=== PATIENT | female | born 1945 | race Caucasian/White ===

== ENCOUNTER → 2021-05-28 08:11 | Outpatient (BNVA) | payer MEDICARE, SELFPAY | PROVIDERS: PCP Internal Medicine; Visit Provider Internal Medicine | DX: I10 Essential (primary) hypertension (principal) | CPT/HCPCS: 99212 ==

== ENCOUNTER → 2021-06-11 14:26 | Outpatient (REF) | payer MEDICARE, SELFPAY ==
--- NOTE | 2021-06-11 14:32 | CA_ITS ---
Transthoracic Echocardiogram Patient (Last, First, Middle): Angle Wiseman, Gender: Female Date of : 1945 Age: 75 Procedure Date: 06/11/2021 Procedure Type: Transthoracic Echocardiogram Location: OP Height: 162.56 cm Weight: 69.4 kg BSA: 1.75 m2 Heart Rate: bpm BP: 130 / 90 mmHg Splicer Machine Operator: PRISCA Referring MD: Anil Levine MD Symptoms: I10 - Essential (primary) hypertension Study Quality: Fair ECG Rhythm: Sinus Conclusions: - The left ventricular systolic function is normal. The calculated ejection fraction is 62% by biplane method. - There is an interatrial septal aneurysm seen. - No obvious PFO by color Doppler. - No obvious valvular pathology seen on this study. Findings Left Ventricle Normal left ventricular cavity size. There is normal left ventricular wall thickness. The left ventricular systolic function is normal. The calculated ejection fraction is 62% by biplane method. There is no evidence of regional wall motion abnormalities. Diastolic function is normal for age. Right Ventricle Normal right ventricular cavity size and systolic function. Atria Both atria are normal in size. There is an interatrial septal aneurysm seen. No obvious PFO by color Doppler. Aortic Valve There is a normal trileaflet aortic valve. There is no aortic valve stenosis. There is no aortic valve regurgitation. Mitral Valve The mitral valve appears normal. There is trace mitral valve regurgitation. There is no mitral valve stenosis. Pulmonic Valve The pulmonic valve was not well visualized. Tricuspid Valve There is trace tricuspid valve regurgitation. The pulmonary artery systolic pressure is normal. Great Vessels The asc aorta and aortic arch are normal in size. Venous The inferior vena cava was not well visualized. Pericardium/Pleural There is no evidence of pericardial effusion. Prior Study Comparison No significant change compared to prior study dated: 01/28/2020. Recommendations, Care & Conclusions No obvious valvular pathology seen on this study. Measurements 2D Linear Measurements IVSd: 0.95 0.6-0.9/0.6-1.0 cm LVIDd: 2.83 3.9-5.3/4.2-5.9 cm LVIDd Index: 1.62 2.4-3.2/2.2-3.1 cm/m2 LVIDs: 1.95 2.0-3.6 cm LVPWd: 0.89 0.7-1.1 cm Ao Root: 3.60 2.1-3.5 cm LA Diam: 3.30 2.7-3.8/3.0-4.0 cm LAIDs Index: 1.89 1.5-2.3 cm/m2 LV Mass: 82.01 67-162/88-224 g LV Mass Index: 46.86 43-95/49-115 g/m2 LVOT Diam: 2.10 3.0+(-)1.3 cm 2D Systolic Function EF 4C: 61.30 >55% EF 2C: 63.70 >55% EF BiP: 62.30 >55% Mitral Valve MV Pk E: 0.54 MV PK A: 0.72 MV Decel Time: 166.00 E/A: 0.70 E'Lateral: 7.51 E'Medial: 6.20 E/E' Med: 8.60 E/E' Lat: 7.10 PHT: 49.00 MVA PHT: 4.49 Decel Towner: 3.22 Aortic Valve AoV Pk Antony: 1.28 AoV Mn Antony: 0.87 AoV VTI: 0.26 AoV Pk Grad: 7.00 Aov Mn Grad: 3.00 AUNDREA Cont.VTI: 3.29 LVOT LVOT Pk Antony: 1.27 LVOT Mn Antony: 0.82 LVOT VTI: 0.25 LVOT Pk Grad: 6.00 LVOT Mn Grad: 3.00 LVOT Diam: 2.10 LVOT Area: 3.46 Diastolic Function MV Pk E: 0.54 MV Pk A: 0.72 E/A: 0.70 E'Medial: 6.20 E/E' Med: 8.60 E' Laterial: 7.51 E/E' Lat: 7.10 Right Ventricle TAPSE (mm): 2.04 TVS' Antony: 13.10 Tricuspid Valve TR Pk Antony: 1.95 TR Pk Grad: 15.00 RA Press: 3.00 RVSP: 18.00 Great Vessels Aorta Ao Root-2D: 3.60 2.0-3.7 cm Ao Asc: 3.60 2.1-3.4 cm Ao Arch: 3.30 Updated in Other Vendor System with Status of Final Anil Levine MD electronically signed on 06/11/2021 4:36:55 PM with status of Final
== END ==
LOC: HO.CARD 14:26
PROVIDERS: Visit Provider Internal Medicine
DX: I10 Essential (primary) hypertension (principal)
CPT/HCPCS: 93306

== ENCOUNTER 2021-08-13 11:54 | Outpatient (REF) | payer MEDICARE, SELFPAY ==
--- NOTE | ~2021-08-13 | MM_ITS ---
EXAMINATION: MM SCREENING DIGITAL BREAST TOMOSYNTHESIS, BILATERAL CLINICAL INFORMATION: Screening. Asymptomatic. The lifetime risk of breast cancer based on the Tyrer-Cuzick Model is 2%. COMPARISON: Mammography: 03/28/2017, 03/08/2016 TECHNIQUE: Digital breast tomosynthesis is performed in both the craniocaudal and mediolateral oblique views along with computer-aided detection (CAD). Synthesized 2D images are generated from the tomosynthesis. FINDINGS: There are scattered areas of fibroglandular density (ACR BI-RADS breast composition Category b). There are no significant masses, abnormal calcifications, or other abnormalities. MM/MM tomosynthesis screening BI IMPRESSION: No mammographic evidence of malignancy. ASSESSMENT: BI-RADS 1: Negative RECOMMENDATION: Routine annual mammography screening. This patient's information was entered into a reminder system with a target due date for their next mammogram.
== END 2021-08-13 11:55 | disposition home or self-care (01) ==
LOC: HO.MAMMO 11:54
PROVIDERS: Visit Provider Physician Assistant Medical
DX: Z12.31 Encounter for screening mammogram for malignant neoplasm of breast (principal)
CPT/HCPCS: 77063; 77067

== ENCOUNTER → 2021-08-15 08:50 | Outpatient (BNVA) | payer MEDICARE, SELFPAY | PROVIDERS: PCP Internal Medicine; Referring Provider Internal Medicine; Visit Provider Internal Medicine | DX: I10 Essential (primary) hypertension (principal); I25.3 Aneurysm of heart | CPT/HCPCS: 99212 ==

== ENCOUNTER → 2022-02-06 09:21 | Outpatient (BNVA) | payer MEDICARE, SELFPAY | PROVIDERS: PCP Physician Assistant Medical; Visit Provider Internal Medicine | DX: I25.3 Aneurysm of heart (principal); I10 Essential (primary) hypertension | CPT/HCPCS: 93005; 99212 ==

== ENCOUNTER 2022-09-04 13:10 | Outpatient (REF) | payer MEDICARE, SELFPAY ==
--- NOTE | ~2022-09-04 | MM_ITS ---
EXAMINATION: MM SCREENING DIGITAL BREAST TOMOSYNTHESIS, BILATERAL CLINICAL INFORMATION: Screening. Asymptomatic. The lifetime risk of breast cancer based on the Tyrer-Cuzick Model is 2%. COMPARISON: Mammography: 08/13/2021, 03/28/2017, 03/08/2016 TECHNIQUE: Digital breast tomosynthesis is performed in both the craniocaudal and mediolateral oblique views along with computer-aided detection (CAD). Synthesized 2D images are generated from the tomosynthesis. FINDINGS: There are scattered areas of fibroglandular density (ACR BI-RADS breast composition Category b). There are no significant masses, abnormal calcifications, or other abnormalities. Parenchymal pattern is similar to prior studies. The axilla and skin contours are unremarkable. MM/MM tomosynthesis screening BI IMPRESSION: No mammographic evidence of malignancy. ASSESSMENT: BI-RADS 1: Negative RECOMMENDATION: Routine annual mammography screening. This patient's information was entered into a reminder system with a target due date for their next mammogram.
== END 2022-09-04 13:11 | disposition home or self-care (01) ==
LOC: HO.MAMMO 13:10
PROVIDERS: PCP Internal Medicine; Visit Provider Internal Medicine
DX: Z12.31 Encounter for screening mammogram for malignant neoplasm of breast (principal)
CPT/HCPCS: 77063; 77067

== ENCOUNTER → 2023-02-10 10:07 | Outpatient (BNVA) | payer MEDICARE, SELFPAY | PROVIDERS: PCP Internal Medicine; Referring Provider Internal Medicine; Visit Provider Internal Medicine | DX: I25.3 Aneurysm of heart (principal); I10 Essential (primary) hypertension | CPT/HCPCS: 93005; 99212 ==

== ENCOUNTER 2023-10-10 12:41 | Outpatient (REF) | payer MEDICARE, SELFPAY | END 2023-10-10 12:42 | disposition home or self-care (01) | LOC: HO.MAMMO 12:41 | PROVIDERS: PCP Internal Medicine; Visit Provider Internal Medicine | DX: Z12.31 Encounter for screening mammogram for malignant neoplasm of breast (principal) | CPT/HCPCS: 77063; 77067 ==

== ENCOUNTER → 2023-10-10 13:15 | Outpatient (BNV) | payer MEDICARE, SELFPAY | PROVIDERS: PCP Internal Medicine; Visit Provider Radiology Diagnostic Radiology | DX: Z12.31 Encounter for screening mammogram for malignant neoplasm of breast (principal) | CPT/HCPCS: 77063; 77067 ==

== ENCOUNTER 2023-11-18 10:33 | Outpatient (AMB) | payer MEDICARE, SELFPAY ==
--- NOTE | 2023-11-18 10:42 | A.OFFVIS_ITS ---
Intake Intake Visit Reasons: bladder wall thickening Intake Note: New Patient presents for initial visit for bladder wall thickening Urology Medications: Vitamin B6 Blood Thinner: none Allergies to antibiotics: Azithromycin, amoxicillin Career Services Assistant Required: No Accompanied by: Self / Same As Patient Allergies oxycodone [From Percocet] Allergy (Mild, Verified 11/18/23 22:01) SWELLING,RASH allopurinol Allergy (Unknown, Verified 11/18/23 22:01) unknown amoxicillin Allergy (Unknown, Verified 11/18/23 22:01) unknown azithromycin [From ZITHROMAX] Allergy (Unknown, Verified 11/18/23 22:01) THROAT SWELLING codeine Allergy (Unknown, Verified 11/18/23 22:01) hives labetalol [LABETALOL] Allergy (Unknown, Verified 11/18/23 22:) RASH lisinopril Allergy (Unknown, Verified 11/18/23 22:01) swelling lumps rash aspirin [Aspirin] Adverse Reaction (Mild, Verified 11/18/23 22:01) GI UPSET, upset stomach ibuprofen [IBUPROFEN] Adverse Reaction (Unknown, Verified 11/18/23 22:01) STOMACH UPSET pantoprazole Adverse Reaction (Unknown, Verified 11/18/23 22:01) diarrhea, abd pain, muscle spasms Medication List - Last Reconciled 11/18/23 by JULIANN Webber- carvedilol 25 mg PO BEDTIME cholecalciferol (vitamin D3) (Vitamin D3) 50 mcg PO DAILY clobetasol 0.05% 1 appl topical BID eplerenone 100 mg PO DAILY nitroglycerin 0.4 mg sublingual Q5M omeprazole 20 mg PO DAILY PRN pyridoxine (vitamin B6) 10 mg PO DAILY HPI HPI Comments History of Present Illness Details Angle Alvarenga is a very pleasant 78-year-old female patient of Dr. Yip. She has a past medical history of anxiety and hypertension. She presents to the office today as a new patient for bladder wall thickening. In discussion with the patient today she reports having experienced left-sided upper abdominal pain at which time a CT of the abdomen was ordered and performed and patient patient was noted to have bladder wall thickening. In discussion with the patient today she reports left upper abdominal pain has since subsided. In review of patient's chart it appears CT of the abdomen and pelvis did not show any really no calculi however incidental finding of bladder wall thickening. Discussed at length potential causes of bladder wall thickening with the patient today. When asked she does report new onset of nocturia over the last 3 days. In office urinalysis results reviewed with the patient today positive leukocytes positive nitrates. Discussed potential for possible urinary tract infection. When asked she denies urinary urgency, urinary frequency, incontinence, hematuria, dysuria, foul smelling urine, changes to urinary stream, flank pain, fever, and or chills. When asked she denies any previous history of recurrent urinary tract infections. She otherwise denies any other issues or concerns at this time. [facility] Medical History Anxiety, generalized Hypertension, essential Surgical History History of tonsillectomy History of carpal tunnel surgery History of laminectomy H/O total hysterectomy with bilateral salpingo-oophorectomy (BSO) Family History Father Lung cancer Mother No problems noted. Brother No problems noted. Brother No problems noted. Son No problems noted. Son No problems noted. Sister No problems noted. Sister No problems noted. Daughter No problems noted. Daughter No problems noted. Social History Patient Tobacco Use Status: Never used Tobacco Review of Systems Const Reports as per HPI Eyes Reports no additional complaints ENT Reports no additional complaints Card Reports as per HPI Resp Reports no additional complaints GI Reports no additional complaints Reports as per HPI Musc Reports no additional complaints Neuro Reports no additional complaints Psych Reports as per HPI Endo Reports no additional complaints Alberto/Lymph Reports no additional complaints Aller/Immun Reports no additional complaints Physical Exam Const General: cooperative, healthy appearing, comfortable, no acute distress, well developed, alert and awake Orientation/consciousness: patient oriented x3 Limitations: no limitations HEENT Head: Yes normal to inspection, Yes normocephalic and Yes atraumatic Ears: hearing grossly normal bilaterally Eyes General: appearance normal, both eyes and all related structures Neck Neck: Yes normal visual inspection and Yes trachea midline Chest Chest palpation & inspection: normal inspection of the chest Resp Effort & Inspection: normal respiratory effort and able to speak in complete sentences Cardio Rate: regular rate GI Inspection: Yes normal to inspection General: Yes no CVA tenderness Back/Spine/Pelvis Back: no CVA tenderness Skin General skin exam: no rashes or lesions noted Neuro General: patient oriented x3 Extrem General: Yes normal to inspection Psych Appearance: grossly normal and well kempt Mental Status: mental status grossly normal Speech and movement: Normal speech and movement present and Clear speech present Affect: normal affect Attitude: cooperative Thought process: Normal thought process present Thought content: Normal thought content present Insight: Fair insight present (Psych) Judgement: Fair judgement present (Psych) Results AMB Urinalysis, Automated UA Leukoctes 125 Greg/uL Last Edit by Marion Melvin CMA on 11/18/23 11:00 UA Nitrite Positive Last Edit by Marion Melvin CMA on 11/18/23 11: 00 UA Urobilinogen 0.2 mg/dL Last Edit by Marion Melvin CMA on 4 11:00 UA Protein 30 mg/dL Last Edit by Marion Melvin CMA on 11/18/23 11:0 0 UA pH 6.0 Last Edit by Marion Melvin CMA on 11/18/23 11:00 UA Blood 0 Woody/uL Last Edit by Marion Melvin CMA on 11/18/23 11:00 UA Specific [place] 1.030 Last Edit by Marion Melvin CMA on 11:00 UA Ketone Negative Last Edit by Marion Melvin CMA on 11/18/23 11:0 0 UA Bilirubin 0 mg/dL Last Edit by Marion Melvin CMA on 11/18/23 11: 00 UA Glucose 0 mg/dL Last Edit by Marion Melvin CMA on 11/18/23 11:00 Results Reviewed Results Reviewed: Laboratory Last Values Urine pH (Auto) 6.0 11/18/23 10:57 Specific [place] (Auto) 1.030 11/18/23 10:57 Urine Protein (Auto) 30 mg/dL 11/18/23 10:57 Glucose (UA)(Auto) 0 mg/dL 11/18/23 10:57 Urine Ketones (Auto) Negative 11/18/23 10:57 Urine Blood (Auto) 0 Woody/uL 11/18/23 10:57 Urine Nitrite (Auto) Positive 11/18/23 10:57 Urine Bilirubin (Auto) 0 mg/dL 11/18/23 10:57 Urine Urobilinogen (Auto) 0.2 mg/dL 11/18/23 10:57 Leukocyte Esterase (Auto) 125 Greg/uL 11/18/23 10:57 Assessment & Plan Assessment & Plan (1) Nocturia: Code(s): R35.1 - Nocturia (2) Urinary tract infection: Code(s): N39.0 - Urinary tract infection, site not specified (3) Bladder wall thickening: Code(s): N32.89 - Other specified disorders of bladder Plan In office urinalysis results reviewed with the patient today; as noted above; will send for urine culture. Start Macrobid as discussed and prescribed. Discussed at length potential causes of bladder wall thickening. Discussed, educated, and stressed the importance of continuing to drink plenty of water daily. Discussed potential for near future in office cystoscopy for further assessment evaluation. Follow-up in 1 month with PVR; or sooner with any issues, concerns, and or questions. Orders: Orders AMB Urinalysis Automated Today R33.9 - Retention of urine, unspecified Urine Culture Today N39.0 - Urinary tract infection, site not specified Medications: New nitrofurantoin macrocrystal must administer with a meal/food 100 mg PO BID 20 caps 0RF 10 days N39.0 - Urinary tract infection, site not specified Patient Instructions: The patient had an opportunity to ask questions regarding the treatment plan. All questions were answered. Physical exam, labs, and imaging were discussed and reviewed in detail. As well as risks, benefits, and discussion of treatment choices. No major barriers to understanding were identified. The patient expressed understanding and agreement with the above treatment plan. The patient was made aware they should contact our office by phone for worsening of their current condition, the appearance of new symptoms, or with any questions or concerns. Compliance is encouraged with any medications and follow up testing that is ordered. It is a privilege to be allowed the opportunity to participate in? your urological care.? Again, if you have any questions or concerns If you have any questions or concerns please do not hesitate to contact me. The office is [phone]. This note is constructed using voice recognition software. While every effort has been made to ensure accuracy sales representative sales manager errors may have been included. Yours sincerely, JULIANN Webber-KING Coding Level of Care Code New Pt Level 4 (83282) Diagnoses Nocturia R35.1 Urinary tract infection N39.0 Bladder wall thickening N32.89
== END 2023-11-18 11:16 | disposition home or self-care (01) ==
PROVIDERS: PCP Internal Medicine; Visit Provider Nurse Practitioner Family
DX: R35.1 Nocturia (principal); N39.0 Urinary tract infection, site not specified; N32.89 Other specified disorders of bladder
CPT/HCPCS: 99204

== ENCOUNTER 2023-11-18 10:33 | Outpatient (REF) | payer MEDICARE, SELFPAY | END 2023-11-18 10:34 | disposition home or self-care (01) | LOC: HO.LAB 10:33 | PROVIDERS: PCP Internal Medicine; Visit Provider Nurse Practitioner Family | DX: R35.1 Nocturia (principal); N39.0 Urinary tract infection, site not specified; N32.89 Other specified disorders of bladder | CPT/HCPCS: 81003; 87086; 87088; 87186; 99202 ==

== ENCOUNTER 2023-12-23 11:46 | Outpatient (AMB) | payer MEDICARE, SELFPAY ==
--- NOTE | 2023-12-23 12:07 | MHC.OFFVIS ---
Intake Intake Visit Reasons: 1m/PVR Intake Note: Patient presents today for a follow up on PVR Meds- None Allergies to Antibiotic- No Known Allergies Post Void Residual: 0ml Tapper Balance Wheel Screw Hole Required: No Accompanied by: Self / Same As Patient Allergies oxycodone [From Percocet] Allergy (Mild, Verified 12/23/23 13:05) SWELLING,RASH allopurinol Allergy (Unknown, Verified 12/23/23 13:05) unknown amoxicillin Allergy (Unknown, Verified 12/23/23 13:05) unknown azithromycin [From ZITHROMAX] Allergy (Unknown, Verified 12/23/23 13:05) THROAT SWELLING codeine Allergy (Unknown, Verified 12/23/23 13:05) hives labetalol [LABETALOL] Allergy (Unknown, Verified 12/23/23 13:05) RASH lisinopril Allergy (Unknown, Verified 12/23/23 13:05) swelling lumps rash aspirin [Aspirin] Adverse Reaction (Mild, Verified 12/23/23 13:05) GI UPSET, upset stomach ibuprofen [IBUPROFEN] Adverse Reaction (Unknown, Verified 12/23/23 13:05) STOMACH UPSET pantoprazole Adverse Reaction (Unknown, Verified 12/23/23 13:05) diarrhea, abd pain, muscle spasms Medication List - Last Reconciled 12/23/23 by JULIANN Webber- carvedilol 25 mg PO BEDTIME cholecalciferol (vitamin D3) (Vitamin D3) 50 mcg PO DAILY clobetasol 0.05% 1 appl topical BID eplerenone 100 mg PO DAILY nitroglycerin 0.4 mg sublingual Q5M omeprazole 20 mg PO DAILY PRN pyridoxine (vitamin B6) 10 mg PO DAILY HPI HPI Comments History of Present Illness Details Angle Alvarenga is a very pleasant 78-year-old female patient of Dr. Yip. She has a past medical history of anxiety and hypertension. She presents to the office today for follow-up. Of note, patient was seen approximately 1 month ago as a new patient for bladder wall thickening at which time in office urinalysis noted positive leukocytes and nitrates. At that time her urine was sent for urine culture. She has since been treated with nitrofurantoin for positive E coli urine culture. In discussion with the patient today she reports having completed antibiotic therapy as prescribed. She discusses at length her ongoing gastroenterological issues. She reports feeling early satiety and constant fullness in her stomach. She also reports nocturia however states it is intermittent and not often enough to be bothersome. She otherwise denies urinary urgency, urinary frequency, incontinence, hematuria, dysuria, foul smelling urine, changes to urinary stream, flank pain, fever, and or chills. In office urinalysis results reviewed with the patient today. PVR 0 mL. Patient with a longstanding history of nephrolithiasis requiring surgical intervention with Dr. Santana discussed obtaining retroperitoneal ultrasound for surveillance monitoring given history of nephrolithiasis and nocturia. Discussed referral to GI. [facility] Medical History Anxiety, generalized Hypertension, essential Surgical History History of tonsillectomy History of carpal tunnel surgery History of laminectomy H/O total hysterectomy with bilateral salpingo-oophorectomy (BSO) Family History Father Lung cancer Mother No problems noted. Brother No problems noted. Brother No problems noted. Son No problems noted. Son No problems noted. Sister No problems noted. Sister No problems noted. Daughter No problems noted. Daughter No problems noted. Social History Patient Tobacco Use Status: Never used Tobacco Review of Systems Const Reports as per HPI Eyes Reports no additional complaints ENT Reports no additional complaints Card Reports as per HPI Resp Reports no additional complaints GI Reports no additional complaints Reports as per HPI Musc Reports no additional complaints Neuro Reports no additional complaints Psych Reports as per HPI Endo Reports no additional complaints Alberto/Lymph Reports no additional complaints Aller/Immun Reports no additional complaints Physical Exam Const General: cooperative, healthy appearing, comfortable, no acute distress, well developed, alert and awake Orientation/consciousness: patient oriented x3 Limitations: no limitations HEENT Head: Yes normal to inspection, Yes normocephalic and Yes atraumatic Ears: hearing grossly normal bilaterally Eyes General: appearance normal, both eyes and all related structures Neck Neck: Yes normal visual inspection and Yes trachea midline Chest Chest palpation & inspection: normal inspection of the chest Resp Effort & Inspection: normal respiratory effort and able to speak in complete sentences Cardio Rate: regular rate GI Inspection: Yes normal to inspection General: Yes no CVA tenderness Back/Spine/Pelvis Back: no CVA tenderness Skin General skin exam: no rashes or lesions noted Neuro General: patient oriented x3 Extrem General: Yes normal to inspection Psych Appearance: grossly normal and well kempt Mental Status: mental status grossly normal Speech and movement: Normal speech and movement present and Clear speech present Affect: normal affect Attitude: cooperative Thought process: Normal thought process present Thought content: Normal thought content present Insight: Fair insight present (Psych) Judgement: Fair judgement present (Psych) Office Procedures Post Void Residual Post Residual Void Post Void Residual (PVR): 0 [id number]-[id number] Void Residual by ultrasound Results AMB Urinalysis, Automated UA Leukoctes 70 Greg/uL Last Edit by Marion Melvin CMA on 12/23/23 12:21 UA Nitrite Negative Last Edit by Marion Melvin CMA on 12/23/23 12:21 UA Urobilinogen 0.2 mg/dL Last Edit by Marion Melvin CMA on 12/23/23 12:21 UA Protein 15 mg/dL Last Edit by Marion Melvin CMA on 12/23/23 12:21 UA pH 6.0 Last Edit by Marion Melvin CMA on 12/23/23 12:21 UA Blood 0 Woody/uL Last Edit by Marion Melvin CMA on 12/23/23 12:21 UA Specific [place] 1.015 Last Edit by Marion Melvin CMA on 12/23/23 12:21 UA Ketone Negative Last Edit by Marion Melvin CMA on 12/23/23 12:21 UA Bilirubin 1 mg/dL Last Edit by Marion Melvin CMA on 12/23/23 12:21 UA Glucose 0 mg/dL Last Edit by Marion Melvin CMA on 12/23/23 12:21 Results Reviewed Results Reviewed: Laboratory Last Values Urine pH (Auto) 6.0 12/23/23 12:11 Specific [place] (Auto) 1.015 12/23/23 12:11 Urine Protein (Auto) 15 mg/dL 12/23/23 12:11 Glucose (UA)(Auto) 0 mg/dL 12/23/23 12:11 Urine Ketones (Auto) Negative 12/23/23 12:11 Urine Blood (Auto) 0 Woody/uL 12/23/23 12:11 Urine Nitrite (Auto) Negative 12/23/23 12:11 Urine Bilirubin (Auto) 1 mg/dL 12/23/23 12:11 Urine Urobilinogen (Auto) 0.2 mg/dL 12/23/23 12:11 Leukocyte Esterase (Auto) 70 Greg/uL 12/23/23 12:11 Assessment & Plan Assessment & Plan (1) Bladder wall thickening: Code(s): N32.89 - Other specified disorders of bladder (2) Nocturia: Code(s): R35.1 - Nocturia Plan In office urinalysis results reviewed with the patient today; as noted above. PVR 0 mL. Patient reports nocturia however discusses it is intermittent and not bothersome at this time. Discussed obtaining retroperitoneal ultrasound for further assessment evaluation of longstanding history of nephrolithiasis as well as nocturia She otherwise denies any bothersome urinary issues or concerns. She reports be happy with current voiding parameters. Will refer to gastroenterology. Discussed UTI prevention with D mannose supplement, vitamin-C, increasing fluid intake, behavioral therapy with timed voiding, perineal hygiene and postcoital voiding, and management of constipation with stool softeners and increased fiber intake. Follow-up in 3 months with imaging to be completed prior and PVR at next office visit; or sooner with any issues, concerns, and or questions. Orders: Orders US renal BI 3 Months N20.0 - Calculus of kidney AMB Urinalysis Automated Today R33.9 - Retention of urine, unspecified AMB Post Void Residual by ultrasound Today R33.9 - Retention of urine, unspecified Referrals Gastroenterology Referral R68.81 - Early satiety Patient Instructions: The patient had an opportunity to ask questions regarding the treatment plan. All questions were answered. Physical exam, labs, and imaging were discussed and reviewed in detail. As well as risks, benefits, and discussion of treatment choices. No major barriers to understanding were identified. The patient expressed understanding and agreement with the above treatment plan. The patient was made aware they should contact our office by phone for worsening of their current condition, the appearance of new symptoms, or with any questions or concerns. Compliance is encouraged with any medications and follow up testing that is ordered. It is a privilege to be allowed the opportunity to participate in? your urological care.? Again, if you have any questions or concerns If you have any questions or concerns please do not hesitate to contact me. The office is [phone]. This note is constructed using voice recognition software. While every effort has been made to ensure accuracy science analyst errors may have been included. Yours sincerely, JULIANN Webber-KING Coding Level of Care Code Est Pt Level 4 (37596) Diagnoses Bladder wall thickening N32.89 Nocturia R35.1 CPT Codes Post Residual Void - PVR CPT Code: 89930-[id number] Void Residual by ultrasound ([id number]) Time Spent (min) 35
== END 2023-12-23 12:46 | disposition home or self-care (01) ==
PROVIDERS: PCP Internal Medicine; Visit Provider Nurse Practitioner Family
DX: N32.89 Other specified disorders of bladder (principal); R35.1 Nocturia; R33.9 Retention of urine, unspecified
CPT/HCPCS: 99214

== ENCOUNTER → 2023-12-23 11:46 | Outpatient (BNVA) | payer MEDICARE, SELFPAY | PROVIDERS: PCP Internal Medicine; Visit Provider Nurse Practitioner Family | DX: N32.89 Other specified disorders of bladder (principal); R35.1 Nocturia; N20.0 Calculus of kidney; R33.9 Retention of urine, unspecified | CPT/HCPCS: 51798; 81003; 99212 ==

== ENCOUNTER 2024-04-21 12:30 | Outpatient (AMB) | payer MEDICARE, SELFPAY ==
--- NOTE | 2024-04-21 12:51 | MHC.OFFVIS ---
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 Accompanied by: Self / Same As Patient Allergies oxycodone [From Percocet] Allergy (Mild, Verified 12/23/23 13:05) SWELLING,RASH allopurinol Allergy (Unknown, Verified 12/23/23 13:05) unknown amoxicillin Allergy (Unknown, Verified 12/23/23 13:05) unknown azithromycin [From ZITHROMAX] Allergy (Unknown, Verified 12/23/23 13:05) THROAT SWELLING codeine Allergy (Unknown, Verified 12/23/23 13:05) hives labetalol [LABETALOL] Allergy (Unknown, Verified 12/23/23 13:05) RASH lisinopril Allergy (Unknown, Verified 12/23/23 13:05) swelling lumps rash aspirin [Aspirin] Adverse Reaction (Mild, Verified 12/23/23 13:05) GI UPSET, upset stomach ibuprofen [IBUPROFEN] Adverse Reaction (Unknown, Verified 12/23/23 13:05) STOMACH UPSET pantoprazole Adverse Reaction (Unknown, Verified 12/23/23 13:05) diarrhea, abd pain, muscle spasms Medication List - Last Reconciled 04/21/24 by Anil Levine MD carvedilol 25 mg PO BID cholecalciferol (vitamin D3) (Vitamin D3) 50 mcg PO DAILY clobetasol 0.05% 1 appl topical BID clonidine HCl 0.1 mg PO BID 90 days eplerenone 100 mg PO BID nitroglycerin 0.4 mg sublingual Q5M omeprazole 20 mg PO DAILY PRN pyridoxine (vitamin B6) 10 mg PO DAILY HPI Comments Details: Angle returns for follow-up. She has difficult to control hypertension which is very labile. She has tried various medications including hydralazine, nicardipine, losartan, hydrochlorothiazide but had numerous side effects. With spironolactone, she got very hypotensive/tachycardic. With high blood pressures, she can get symptoms like chest pain and shortness of breath. She has also tried olmesartan but due to low blood pressure, that was also stopped. She is currently on carvedilol and eplerenone. She was on clonidine but it seems she has been off that for the last couple months. It seems that her blood pressure is more erratic now than before according to her. Unclear if it is related to stopping the clonidine. She again gets various constitutional symptoms as well as headaches extra when the blood pressures go up and down. [facility] Medical History Anxiety, generalized Hypertension, essential Surgical History History of tonsillectomy History of carpal tunnel surgery History of laminectomy H/O total hysterectomy with bilateral salpingo-oophorectomy (BSO) Family History Father Lung cancer Mother No problems noted. Brother No problems noted. Brother No problems noted. Son No problems noted. Son No problems noted. Sister No problems noted. Sister No problems noted. Daughter No problems noted. Daughter No problems noted. Social History Alcohol intake: never Patient Tobacco Use Status: Never used Tobacco Review of Systems Const Denies chills, Denies fatigue, Denies fever(s), Reports weakness, Denies weight gain and Denies weight loss ENT Denies dizziness Card Denies chest pain, Denies leg edema, Denies lightheadedness, Denies palpitations, Denies dyspnea on exertion, Denies orthopnea and Denies other Resp Denies cough and Denies dyspnea on exertion GI Denies hematochezia and Denies change in stool character Musc Denies abnormal gait, Denies muscle weakness, Denies numbness, Denies radiating pain into limb and Denies tingling Neuro Denies abnormal gait, Denies dizziness, Denies numbness, Denies tingling and Reports weakness Endo Denies fatigue and Denies palpitations Physical Exam Vital Signs: Last Vital Signs Pulse 83 04/21/24 12:53 BP 160/80 H 04/21/24 12:53 BMI result Body Mass Index 29.9 Const General: comfortable and no acute distress Orientation/consciousness: patient oriented x3 HEENT Other: Unremarkable Head: Yes normal to inspection Neck Neck: Yes normal visual inspection Chest Chest palpation & inspection: normal inspection of the chest Resp Auscultation: clear to auscultation bilaterally Cardio Palpation: normal PMI Heart sounds: S1 normal heart sound present, S2 normal heart sound present, no gallops, no murmurs and no rubs GI Palpation (GI): Soft to palpation Back/Spine/Pelvis Other: unremarkable Skin General skin exam: no rashes or lesions noted Neuro General: patient oriented x3 Extrem General: Yes normal to inspection Psych Mental Status: mental status grossly normal Office Procedures EKG Details: EKG with sinus rhythm at 83/Min; no significant ST-T changes and otherwise unremarkable[place] [id number], Complete Assessment & Plan Assessment & Plan (1) Hypertension, essential: Code(s): I10 - Essential (primary) hypertension Category: Medical Plan: Currently, on carvedilol/eplerenone. Unclear if the high blood pressure is because of stopping the clonidine. We can resume that. Not the 1st line choice but she has unfortunately tried so many medications with various issues. Various other medications have been tried in the past including nicardipine, hydralazine, spironolactone, losartan, olmesartan, hydrochlorothiazide with some issue or the other. Otherwise, last echocardiogram with preserved LVEF. Myocardial perfusion imaging study from 2019 showed normal perfusion. Sleep study was requested in the past but denied by insurance. (2) Atrial septal aneurysm: Code(s): I25.3 - Aneurysm of heart Category: Medical Plan: Seen in echocardiogram, no clear evidence of PFO by color Doppler. No specific implications at this time. Plan Advised her to contact us back in a few days with blood pressure readings. Total time spent including review of data, counseling, documentation, coordination of care-31 minutes. Medications: New clonidine HCl 0.1 mg PO BID 180 tabs 3RF 90 days Coding Level of Care Code Est Pt Level 4 (21797) Diagnoses Hypertension, essential I10 Atrial septal aneurysm I25.3 CPT Codes EKG - CPT: 97230-[id number], Complete ([id number])
[2024-04-21 12:53] VITALS: BP 160/80; PULSE 83; BMI 29.9
== END 2024-04-21 13:16 | disposition home or self-care (01) ==
PROVIDERS: Visit Provider Internal Medicine
DX: I10 Essential (primary) hypertension (principal); I25.3 Aneurysm of heart
CPT/HCPCS: 93010; 99214

== ENCOUNTER → 2024-04-21 12:30 | Outpatient (BNVA) | payer MEDICARE, SELFPAY | PROVIDERS: Visit Provider Internal Medicine | DX: I10 Essential (primary) hypertension (principal); I25.3 Aneurysm of heart | CPT/HCPCS: 93005; 99212 ==

== ENCOUNTER 2024-05-28 13:47 | Outpatient (AMB) | payer MEDICARE, SELFPAY ==
--- NOTE | 2024-05-28 13:57 | MHC.OFFVIS ---
Vital Signs 05/28/24 14:11 Height 5 ft 3 in Weight 163 lb 2.273 oz BMI 28.9 BP 121/74 Blood Pressure Location Lt brachial Position Sitting Pulse 74 Intake Visit Reasons: Early Satiety Intake Note: Angle presents in the office as a new patient for early satiety. CC: She states that she is always bloated in her stomach. She states that after she eats she gets an uncomfortable feeling and she states that she has inflammation in her esophagus. She states omeprazole is helping but it is not helping a lot. She is having dizziness and not sure what medication is causing it. She states her BP goes low and spikes to 200 and she is unsure what she should do. 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 Allergies oxycodone [From Percocet] Allergy (Mild, Verified 05/28/24 14:13) SWELLING,RASH allopurinol Allergy (Unknown, Verified 05/28/24 14:13) unknown amoxicillin Allergy (Unknown, Verified 05/28/24 14:13) unknown azithromycin [From ZITHROMAX] Allergy (Unknown, Verified 05/28/24 14:13) THROAT SWELLING codeine Allergy (Unknown, Verified 05/28/24 14:13) hives labetalol [LABETALOL] Allergy (Unknown, Verified 05/28/24 14:13) RASH lisinopril Allergy (Unknown, Verified 05/28/24 14:13) swelling lumps rash aspirin [Aspirin] Adverse Reaction (Mild, Verified 05/28/24 14:13) GI UPSET, upset stomach ibuprofen [IBUPROFEN] Adverse Reaction (Unknown, Verified 05/28/24 14:13) STOMACH UPSET pantoprazole Adverse Reaction (Unknown, Verified 05/28/24 14:13) diarrhea, abd pain, muscle spasms HPI Comments Details: 78 y.o F who is here for GI issues as below. Reports abd bloating that starts within a few mins of eating. DOesnt matter what she has had for intake. Has not been able to finish her food x 3 months. Has lost a few pounds in the past couple of months. Was seen at [facility] for EGD 02/02/24: Grade B esophagitis. Hiatal hernia. Esophageal biopsies reviewed. Gastric and duodenal biopsies not taken. Assoc with nausea. Sometimes also reports dizziness but is unsure if related to her GI illness. Was given omeprazole 40 BID which she thinks has helped a bit. ON LICENSE OF [facility] Medical History Anxiety, generalized Hypertension, essential Surgical History Hx of colonoscopy History of esophagogastroduodenoscopy (EGD) History of tonsillectomy History of carpal tunnel surgery History of laminectomy H/O total hysterectomy with bilateral salpingo-oophorectomy (BSO) Family History Father Lung cancer Mother No problems noted. Brother No problems noted. Brother No problems noted. Son No problems noted. Son No problems noted. Sister No problems noted. Sister No problems noted. Daughter No problems noted. Daughter No problems noted. Social History Alcohol intake: never Patient Tobacco Use Status: Never used Tobacco Review of Systems Const All systems reviewed & are unremarkable except as noted in HPI and below Physical Exam Vital Signs: Last Vital Signs Pulse 74 05/28/24 14:11 BP 121/74 05/28/24 14:11 BMI result Body Mass Index 28.9 No apparent distress Nonicteric Abdomen soft, nondistended Alert and oriented x3, normal gait Assessment & Plan Assessment & Plan (1) Abdominal pain: Code(s): R10.9 - Unspecified abdominal pain Category: Medical (2) Early satiety: Code(s): R68.81 - Early satiety Category: Medical (3) Bloating: Code(s): R14.0 - Abdominal distension (gaseous) Category: Medical Plan Differentials include gastritis, SIBO, malabsorption, symptomatic cholelithiasis, functional dyspepsia. Plan: -in office H pylori breath test -labs ordered as below -CT abdomen and pelvis with IV contrast to rule out any anatomical abnormality -trial of rifaximin 550 t.i.d. to 14 days for possible SIBO Follow-up in 6-8 weeks Orders: Orders Comprehensive Met. Panel Today R68.81 - Early satiety TSH reflex Free T4 Today R68.81 - Early satiety Transglutaminase IgA Today R68.81 - Early satiety Immunoglobulin A Today R68.81 - Early satiety CT abdomen pelvis w IV con Today R10.9 - Unspecified abdominal pain, R68.81 - Early satiety H Pylori Breath Test Today R10.9 - Unspecified abdominal pain, R68.81 - Early satiety Complete Blood Count no Diff Today R68.81 - Early satiety Medications: New rifaximin 550 mg PO TID 42 tabs 0RF 14 days Coding Level of Care Code New Pt Level 4 (18754) Diagnoses Abdominal pain R10.9 Early satiety R68.81 Bloating R14.0
[2024-05-28 14:11] VITALS: BP 121/74; PULSE 74; BMI 28.9
== END 2024-05-28 15:14 | disposition home or self-care (01) ==
PROVIDERS: PCP Internal Medicine; Visit Provider Internal Medicine
DX: R10.9 Unspecified abdominal pain (principal); R68.81 Early satiety; R14.0 Abdominal distension (gaseous)
CPT/HCPCS: 99204

== ENCOUNTER 2024-05-28 13:47 | Outpatient (REF) | payer MEDICARE, SELFPAY ==
[2024-05-28 16:12] LABS: Hematocrit 42.2 % (37.0-47.0); Hemoglobin 14.4 g/dl (12.0-16.0); Mean Corpuscular HGB Conc 34.1 g/dl (31.0-35.0); Mean Corpuscular Hemoglobin 30.2 pg (27.0-33.0); Mean Corpuscular Volume 88.5 fL (80.0-98.0); Mean Platelet Volume 10.5 fL (9.4-12.3); Platelet Count 201 X10*3/uL (160-400); Red Blood Count 4.77 X10*6/uL (4.20-5.50); Red Cell Distribution Width 12.9 % (11.0-16.0); White Blood Count 5.9 X10*3/uL (4.8-10.8)
[2024-05-28 16:35] LABS: Alanine Aminotransferase 16 U/L (0-31); Albumin Level 4.4 g/dL (3.5-5.0); Alkaline Phosphatase 76 U/L (39-117); Anion Gap 13 (12-20); Aspartate Amino Transferase 21 U/L (5-31); Bilirubin Total 0.5 mg/dL (0.0-1.0); Blood Urea Nitrogen 24 mg/dL (9-16); Calcium 9.9 mg/dL (8.4-10.2); Carbon Dioxide 25 mmol/L (22-29); Chloride 103 mmol/L (96-108); Estimated Glomerular Filt Rate 53; Glucose Random 107 mg/dL (60-115); Potassium 4.3 mmol/L (3.3-5.1); Sodium 137 mmol/L (135-145); Total Protein 7.4 g/dL (6.5-8.0)
[2024-05-28 16:53] LABS: TSH reflex Free T4 1.26 uIU/mL (0.32-4.0)
[2024-06-01 12:58] LABS: Immunoglobulin A 111 mg/dL (70-320)
[2024-06-01 13:58] LABS: Transglutaminase IgA <1.0 U/mL
== END 2024-05-28 13:48 | disposition home or self-care (01) ==
LOC: HO.LAB 13:47
PROVIDERS: PCP Internal Medicine; Visit Provider Internal Medicine
DX: Z13.89 Encounter for screening for other disorder (principal); R68.81 Early satiety
CPT/HCPCS: 36415; 80053; 82784; 84443; 85027; 86364; 99202

== ENCOUNTER 2024-05-28 15:14 | Outpatient (REF) | payer MEDICARE, SELFPAY ==
[2024-06-02 13:21] LABS: H Pylori Breath Test Negative (Negative)
== END 2024-05-28 15:15 | disposition home or self-care (01) ==
LOC: HO.LNP 15:14
PROVIDERS: Visit Provider Internal Medicine
DX: R10.9 Unspecified abdominal pain (principal); R68.81 Early satiety; R14.0 Abdominal distension (gaseous)
CPT/HCPCS: 36415; 80053; 82784; 83013; 84443; 85027; 86364; 99202

== ENCOUNTER 2024-06-22 13:48 | Outpatient (AMB) | payer MEDICARE, SELFPAY ==
--- NOTE | 2024-06-22 14:07 | MHC.OFFVIS ---
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 Accompanied by: Self / Same As Patient Allergies oxycodone [From Percocet] Allergy (Mild, Verified 05/28/24 14:13) SWELLING,RASH allopurinol Allergy (Unknown, Verified 05/28/24 14:13) unknown amoxicillin Allergy (Unknown, Verified 05/28/24 14:13) unknown azithromycin [From ZITHROMAX] Allergy (Unknown, Verified 05/28/24 14:13) THROAT SWELLING codeine Allergy (Unknown, Verified 05/28/24 14:13) hives labetalol [LABETALOL] Allergy (Unknown, Verified 05/28/24 14:13) RASH lisinopril Allergy (Unknown, Verified 05/28/24 14:13) swelling lumps rash aspirin [Aspirin] Adverse Reaction (Mild, Verified 05/28/24 14:13) GI UPSET, upset stomach ibuprofen [IBUPROFEN] Adverse Reaction (Unknown, Verified 05/28/24 14:13) STOMACH UPSET pantoprazole Adverse Reaction (Unknown, Verified 05/28/24 14:13) diarrhea, abd pain, muscle spasms Medication List - Last Reconciled 06/22/24 by Anil Levine MD carvedilol 25 mg PO BID cefpodoxime 100 mg PO BID cholecalciferol (vitamin D3) (Vitamin D3) 50 mcg PO DAILY clobetasol 0.05% 1 appl topical BID clonidine HCl 0.1 mg PO BID 90 days eplerenone 100 mg PO BID nitroglycerin 0.4 mg sublingual Q5M omeprazole 40 mg PO BID pyridoxine (vitamin B6) 10 mg PO DAILY HPI Comments Details: Angle returns for follow-up. She has difficult to control hypertension which is very labile. She has tried various medications including hydralazine, nicardipine, losartan, hydrochlorothiazide but had numerous side effects. With spironolactone, she got very hypotensive/tachycardic. With high blood pressures, she can get symptoms like chest pain and shortness of breath. She has also tried olmesartan but due to low blood pressure, that was also stopped. Current medical regimen includes carvedilol, clonidine, eplerenone. Overall, she states she is feeling okay. Some nonspecific complaints but nothing clear-cut cardiac. [facility] Medical History Anxiety, generalized Hypertension, essential Surgical History Hx of colonoscopy History of esophagogastroduodenoscopy (EGD) History of tonsillectomy History of carpal tunnel surgery History of laminectomy H/O total hysterectomy with bilateral salpingo-oophorectomy (BSO) Family History Father Lung cancer Mother No problems noted. Brother No problems noted. Brother No problems noted. Son No problems noted. Son No problems noted. Sister No problems noted. Sister No problems noted. Daughter No problems noted. Daughter No problems noted. Social History Alcohol intake: never Patient Tobacco Use Status: Never used Tobacco Review of Systems Const Denies chills, Denies fatigue, Denies fever(s), Denies weight gain and Denies weight loss ENT Denies dizziness Card Denies chest pain, Denies leg edema, Denies lightheadedness, Denies palpitations, Denies dyspnea on exertion, Denies orthopnea and Denies other Resp Denies cough and Denies dyspnea on exertion GI Denies hematochezia and Denies change in stool character Musc Denies abnormal gait, Denies muscle weakness, Denies numbness, Denies radiating pain into limb and Denies tingling Neuro Denies abnormal gait, Denies dizziness, Denies numbness and Denies tingling Endo Denies fatigue and Denies palpitations Physical Exam Vital Signs: Last Vital Signs Pulse 73 06/22/24 14:11 BP 118/78 06/22/24 14:11 BMI result Body Mass Index 28.8 Const General: comfortable and no acute distress Orientation/consciousness: patient oriented x3 HEENT Other: Unremarkable Head: Yes normal to inspection Neck Neck: Yes normal visual inspection Chest Chest palpation & inspection: normal inspection of the chest Resp Auscultation: clear to auscultation bilaterally Cardio Palpation: normal PMI Heart sounds: S1 normal heart sound present, S2 normal heart sound present, no gallops, no murmurs and no rubs GI Palpation (GI): Soft to palpation Back/Spine/Pelvis Other: unremarkable Skin General skin exam: no rashes or lesions noted Neuro General: patient oriented x3 Extrem General: Yes normal to inspection Psych Mental Status: mental status grossly normal Assessment & Plan Assessment & Plan (1) Hypertension, essential: Code(s): I10 - Essential (primary) hypertension Category: Medical Plan: Currently, on carvedilol, clonidine, eplerenone. Various other medications have been tried in the past including nicardipine, hydralazine, spironolactone, losartan, olmesartan, hydrochlorothiazide with some issue or the other. Otherwise, last echocardiogram with preserved LVEF. Myocardial perfusion imaging study from 2019 showed normal perfusion. Sleep study was requested in the past but denied by insurance. Clinically, she has got no other symptoms. (2) Atrial septal aneurysm: Code(s): I25.3 - Aneurysm of heart Category: Medical Plan: Seen in echocardiogram, no clear evidence of PFO by color Doppler. No specific implications at this time. Coding Level of Care Code Est Pt Level 3 (67528) Diagnoses Hypertension, essential I10 Atrial septal aneurysm I25.3
[2024-06-22 14:11] VITALS: BP 118/78; PULSE 73; BMI 28.8
== END 2024-06-22 14:28 | disposition home or self-care (01) ==
PROVIDERS: PCP Internal Medicine; Visit Provider Internal Medicine
DX: I10 Essential (primary) hypertension (principal); I25.3 Aneurysm of heart
CPT/HCPCS: 99213

== ENCOUNTER → 2024-06-22 13:48 | Outpatient (BNVA) | payer MEDICARE, SELFPAY | PROVIDERS: PCP Internal Medicine; Visit Provider Internal Medicine | DX: I25.3 Aneurysm of heart (principal); I10 Essential (primary) hypertension | CPT/HCPCS: 99212 ==

== ENCOUNTER 2024-07-21 15:09 | Outpatient (REF) | payer MEDICARE, SELFPAY ==
[2024-07-21 16:33] LABS: Anion Gap 12 (12-20); Blood Urea Nitrogen 35 mg/dL (9-16); Carbon Dioxide 24 mmol/L (22-29); Chloride 106 mmol/L (96-108); Estimated Glomerular Filt Rate 55; Glucose Random 118 mg/dL (60-115); Potassium 4.6 mmol/L (3.3-5.1); Sodium 137 mmol/L (135-145)
== END 2024-07-21 15:10 | disposition home or self-care (01) ==
LOC: HO.LAB 15:09
PROVIDERS: PCP Internal Medicine; Visit Provider Internal Medicine
DX: R10.9 Unspecified abdominal pain (principal)
CPT/HCPCS: 36415; 80048

== ENCOUNTER 2024-07-22 13:00 | Outpatient (REF) | payer MEDICARE, SELFPAY ==
--- NOTE | ~2024-07-22 | CT_ITS ---
EXAMINATION: CT ABDOMEN AND PELVIS WITH CONTRAST CLINICAL INFORMATION: Early satiety COMPARISON: None TECHNIQUE: Multiple axial images were obtained from the superior aspect of the liver through the pubic symphysis after the administration of 85 mL of intravenous Omnipaque 350. Images were evaluated on independent dedicated 3-D workstation and 3-D images were reconstructed with concurrent radiologist supervision and subsequently interpreted. Oral contrast was administered. This CT examination was performed using dose optimization techniques as appropriate, variously including the following: *Automated exposure control *Adjustment of mA and/or kV according to patient size (this includes techniques or standardized protocols for targeted exams where dose is matched to indication/reason for exam; i.e. extremities or head) *Use of iterative reconstruction technique DLP: 376 mGy-cm FINDINGS: LUNG BASES: The visualized lung bases are clear. CARDIOMEDIASTINUM: The visualized heart is normal in size without pericardial effusion. No coronary artery calcification. LIVER: Homogeneous in attenuation. Normal in size. GALLBLADDER: Noninflamed. BILIARY SYSTEM: No intrahepatic or extrahepatic biliary dilation. PANCREAS: Homogeneous in attenuation. SPLEEN: Normal in size. GENITOURINARY: Bilateral kidneys demonstrate symmetric enhancement. No perinephric fluid collection. No renal calculi. No hydroureteronephrosis. ADRENAL GLANDS: Unremarkable. REPRODUCTIVE: Uterus absent. No solid adnexal masses. GASTROINTESTINAL: Hiatal hernia. The visualized alimentary tract is normal in course. No evidence of obstruction. APPENDIX: The appendix is not visualized; however, no pericecal inflammatory changes are seen in the right lower quadrant. PERITONEUM: No pneumoperitoneum. No intra-abdominal fluid collection. VASCULATURE: The abdominal aorta is normal in course and caliber. LYMPH NODES: No pathologically enlarged abdominal or pelvic lymph nodes. SOFT TISSUES/MUSCULOSKELETAL: Multilevel degenerative changes. CT/CT abdomen pelvis w IV con IMPRESSION: 1. No acute abdominal or pelvic pathology. 2. Small hiatal hernia. Fleischner guidelines were followed. Electronically signed by: Shahid Whyte DO 08/17/2024 07:16 PM EST
[2024-07-22] MEDS: iohexoL 350 MG/ML 100 ML INFUS..BTL 85 ML IV (15:36)
[2024-07-22] MEDS: Barium Sulfate Oral (Berry) 450 ML ORAL.SUSP 900 ML PO (15:37)
== END 2024-07-22 13:01 | disposition home or self-care (01) ==
LOC: HO.CT 13:00
PROVIDERS: PCP Internal Medicine; Visit Provider Internal Medicine
DX: R68.81 Early satiety (principal); R10.9 Unspecified abdominal pain
CPT/HCPCS: 74177; Q9967

== ENCOUNTER 2024-08-20 15:32 | Outpatient (AMB) | payer MEDICARE, SELFPAY ==
--- NOTE | 2024-08-20 15:46 | MHC.OFFVIS ---
Vital Signs 08/20/24 15:47 Height 5 ft 3 in Weight 163 lb 2.273 oz BMI 28.9 BP 134/70 Blood Pressure Location Lt brachial Position Sitting Pulse 70 Intake Visit Reasons: f/u CT scan Intake Note: Angle presents in the office as a follow up CT scan. CC: She states that the only concern she is having is she still has issues with her stomach and her hear rate has been high and she is not sure what is causing it. She state sthat due to taking Vit D and Calcium she sometimes has constipation. 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 Allergies oxycodone [From Percocet] Allergy (Mild, Verified 08/20/24 15:48) SWELLING,RASH allopurinol Allergy (Unknown, Verified 08/20/24 15:48) unknown amoxicillin Allergy (Unknown, Verified 08/20/24 15:48) unknown azithromycin [From ZITHROMAX] Allergy (Unknown, Verified 08/20/24 15:48) THROAT SWELLING codeine Allergy (Unknown, Verified 08/20/24 15:48) hives labetalol [LABETALOL] Allergy (Unknown, Verified 08/20/24 15:48) RASH lisinopril Allergy (Unknown, Verified 08/20/24 15:48) swelling lumps rash aspirin [Aspirin] Adverse Reaction (Mild, Verified 08/20/24 15:48) GI UPSET, upset stomach ibuprofen [IBUPROFEN] Adverse Reaction (Unknown, Verified 08/20/24 15:48) STOMACH UPSET pantoprazole Adverse Reaction (Unknown, Verified 08/20/24 15:48) diarrhea, abd pain, muscle spasms HPI Comments Details: 78 y.o F who is here for GI issues as below. Reports abd bloating that starts within a few mins of eating. DOesnt matter what she has had for intake. Has not been able to finish her food x 3 months. Has lost a few pounds in the past couple of months. Was seen at [facility] for EGD 02/02/24: Grade B esophagitis. Hiatal hernia. Esophageal biopsies reviewed. Gastric and duodenal biopsies not taken. Assoc with nausea. Sometimes also reports dizziness but is unsure if related to her GI illness. Was given omeprazole 40 BID which she thinks has helped a bit. 08/20/24: Here for follow up. Reports had another ER visit to [facility] last month. Had an episode of pressure and pain in whole face and neck with L arm pain, pt reports no chest pain or shortness of breath. Reports having cardiac work up done in [facility] but no neuro work up. Had high HR and BP as per her report. [facility] records not available. From GI standpoint, reports near complete resolution of abd pain but still has feeling of bloating post prandially. Rifaximin did not help. CT abd/pel reviewed and + hiatal hernia as also noted on EGD in [facility]. Weight curve stable. Also takes calcium and wonders if that is exacerbating abd cramping. [facility] Medical History Anxiety, generalized Hypertension, essential Surgical History Hx of colonoscopy History of esophagogastroduodenoscopy (EGD) History of tonsillectomy History of carpal tunnel surgery History of laminectomy H/O total hysterectomy with bilateral salpingo-oophorectomy (BSO) Family History Father Lung cancer Mother No problems noted. Brother No problems noted. Brother No problems noted. Son No problems noted. Son No problems noted. Sister No problems noted. Sister No problems noted. Daughter No problems noted. Daughter No problems noted. Social History Alcohol intake: never Patient Tobacco Use Status: Never used Tobacco Review of Systems Const All systems reviewed & are unremarkable except as noted in HPI and below Physical Exam Vital Signs: Last Vital Signs Pulse 70 08/20/24 15:47 BP 134/70 08/20/24 15:47 BMI result Body Mass Index 28.9 No apparent distress Nonicteric Abdomen soft, nondistended Alert and oriented x3 Assessment & Plan Assessment & Plan (1) Hiatal hernia: Code(s): K44.9 - Diaphragmatic hernia without obstruction or gangrene Category: Medical (2) Bloating: Code(s): R14.0 - Abdominal distension (gaseous) Category: Medical Plan 1. For UGI sx, CT Abd/pel reassuring for any extra luminal pathology. Has been on high dose PPI >3 months for esophagitis noted on EGD January 2024, so will descalate. Plan: - Decrease omeprazole to either 40 once daily or 20 BID - Barium swallow for eval of hiatal hernia - Simethicone PRN for symptomatic relief - Pt encouraged to cehck with PCP if can take combination jim + Mg supplement which are better tolerated GI faria. 2. For recent hospitalisation, she was advised to call PCP office for post ER follow up. Suspect may need head and neck imaging given reported sx. Pt was also reminded to discuss high BP with PCP and could have been symptomatic hypertension. Follow up 2 months Orders: Orders [place] barium swallow Today K44.9 - Diaphragmatic hernia without obstruction or gangrene Medications: New simethicone (Gas Relief (simethicone)) 160 mg (2 x 80 mg) PO BID-TID PRN 90 tabs 0RF abdominal distention Coding Level of Care Code Est Pt Level 4 (14962) Diagnoses Hiatal hernia K44.9 Bloating R14.0
[2024-08-20 15:47] VITALS: BP 134/70; PULSE 70; BMI 28.9
== END 2024-08-20 17:03 | disposition home or self-care (01) ==
PROVIDERS: PCP Internal Medicine; Visit Provider Internal Medicine
DX: K44.9 Diaphragmatic hernia without obstruction or gangrene (principal); R14.0 Abdominal distension (gaseous)
CPT/HCPCS: 99214

== ENCOUNTER → 2024-08-20 15:32 | Outpatient (BNVA) | payer MEDICARE, SELFPAY | PROVIDERS: PCP Internal Medicine; Visit Provider Internal Medicine | DX: R14.0 Abdominal distension (gaseous) (principal); K44.9 Diaphragmatic hernia without obstruction or gangrene | CPT/HCPCS: 99212 ==

== ENCOUNTER 2024-11-11 08:02 | Outpatient (REF) | payer MEDICARE, SELFPAY ==
--- NOTE | ~2024-11-11 | FL_ITS ---
EXAMINATION: XR FLUOROSCOPY UPPER GI SERIES CLINICAL INFORMATION: Globus sensation, GERD, hiatus hernia. COMPARISON: None . Correlation made with CT abdomen and pelvis 07/22/2024. TECHNIQUE: Fluoroscopic air contrast upper GI examination was performed utilizing standard techniques with thin and thick barium and effervescent granules. Numerous spot images were obtained. Several fluoroscopic image hold cine sequences were also obtained. This was followed by small bowel series using standard overhead radiographic techniques at specified intervals until contrast was seen in the right colon. Fluoroscopic spot radiographs were then obtained of the terminal ileum and any abnormal findings in the small bowel. FINDINGS: UPPER GI SERIES: Lateral cine images of the oropharynx and hypopharynx demonstrate normal swallow mechanism with normal epiglottic inversion and soft palate elevation. No laryngeal penetration, glottic or subglottic aspiration identified. No nasopharyngeal reflux present. Hypopharyngeal structures appear normal without evidence of mass or diverticulum. There was mild cricopharyngeal achalasia. Dual and single contrast images of the esophagus demonstrate a mildly patulous caliber. Granular appearance to the esophageal mucosa suggesting esophagitis. No evidence of stricture, mass, or gross ulcerations identified. Esophageal peristalsis was mildly disordered. Small to moderate-sized type I hiatus hernia. Intermittent gastroesophageal reflux was seen to the midesophagus. Dual contrast and single contrast images of the stomach demonstrated normal contour and mucosal pattern without evidence of mass, ulceration, or other abnormality. Contrast freely passed into the gastric antrum and duodenal bulb without delay. Single and air-contrast images of the duodenal bulb demonstrate no abnormality. The duodenal sweep has a normal appearance, course, and mucosal fold appearance. FLUOROSCOPY TIME: 2 minutes 48 seconds Number of Spot Images:11 Number of cines obtained: 16 DOSE AREA PRODUCT: 237.8 dGy-m2) FL/FL barium swallow with air IMPRESSION: 1. Mild cricopharyngeal achalasia. 2. Granular appearance to the esophageal mucosa suggesting esophagitis. 3. Mild esophageal dysmotility. 4. Small to moderate-sized type I hiatus hernia. Intermittent gastroesophageal reflux to the midesophagus. 5. Normal-appearing stomach, duodenal bulb, and duodenum. Electronically signed by: Bijan House MD 11/11/2024 09:22 AM [facility]
--- OUTSIDE RECORDS SUMMARY | 2024-11-11 08:05 | XMS_ITS | Clinical Summary ---
Author Organization [facility] Address [address] [place] [phone] Phone Care Team Providers Care Fish Stringer Assembler Name Role Phone Jcarlos Yip MD Primary Care Provider [phone] Allergies Active Allergy Reactions Criticality Noted Date Comments Oxycodone Anaphylaxis High 03/13/2021 Medications carvediloL (COREG) 25 mg tablet Take 1 tablet (25 mg total) by mouth 2 (two) times a day with meals. 4 Active cloNIDine (CATAPRES) 0.1 mg tablet Take 1 tablet (0.1 mg total) by mouth 2 (two) times a day. 4 Active hydrOXYzine HCL (ATARAX) 10 mg tablet Take 1 tablet (10 mg total) by mouth 1 (one) time each day. 4 Active amLODIPine (NORVASC) 5 mg tablet Take 1 tablet (5 mg total) by mouth 1 (one) time each day. 4 Active aspirin 81 mg EC tablet Take 1 tablet (81 mg total) by mouth 1 (one) time each day. 4 Active omeprazole (PriLOSEC) [address] capsule Take 1 capsule (40 mg total) by mouth 2 (two) times a day. 4 Active eplerenone (INSPRA) 50 mg tablet Take 1 tablet (50 mg total) by mouth 2 (two) times a day. Active famotidine (PEPCID) 20 mg tablet TAKE 1 TABLET BY MOUTH EVERY DAY AT BEDTIME NEEDED FOR HEARTBURN 90 tablet 1 4 Active atorvastatin (LIPITOR) 20 mg tablet Take 1 tablet (20 mg total) by mouth 1 (one) time each day. 90 tablet 1 4 Active famotidine (PEPCID) 20 mg tablet Take 1 tablet (20 mg total) by mouth 1 (one) time each day. 2 Active Active Problems Problem Noted Date Diagnosed Date Burping 09/08/2024 Heartburn 09/08/2024 Gastroesophageal reflux dise ase with esophagitis without hemorrhage 07/02/2024 Bladder wall thickening 01/20/2024 Labile hypertension 01/20/2024 Osteoporosis 01/20/2024 Atrial septal aneurysm 06/09/2023 Anxiety 03/19/2022 Insomnia 03/19/2022 Eczema 10/04/2021 Gastroesophageal reflux disease without esophagi tis 03/30/2021 Hypertension 03/30/2021 Immunizations Name Administration Dates Next Due Influenza trivalent, 0.5mL ( Fluad) 65yo and older 06/28/2024,06/08/2021 Influenza trivalent, with pr eservative (Fluzone; Afluria) 6mo and older 07/12/2020,07/05/2019,07/03/2018,06/20,06/14/2016,06/22/2015 Influenza, Unspecified 06/04/2023,06/06/2022 EverySignal SARS-CoV-2 COVID-19, mRNA, LNP-S, preservative free 02/11/2022,07/11/2021 Pneumococcal conjugate 13 va lent (Prevnar 13, PCV13) 2mo and older 07/03/2022 Pneumococcal polysaccharide 23 valent (Pneumovax 23) 2yo and older 01/31/2019,02/01/2012 Tdap Tetanus diptheria acell ular pertussis (Boostrix; Adacel) 7yo and older 02/24/2019,02/25/2012 Zoster recombinant (Shingrix ) 19yo and older 09/02/2023,07/01/2023 Surgical History Surgery Date Site/Laterality Comments OTHER SURGICAL HISTORY 2017 Left PROCEDURE: SD NEPHROLITHOTOMY SECONDARY SURG OPERJ CALCULUS OTHER SURGICAL HISTORY N/A PROCEDURE: SD TOT ABD HYST W/PARAORTIC & PELVIC LYMPH NODE MANDI OTHER SURGICAL HISTORY PROCEDURE: SD ARTHRD PST/PSTLAT TQ 1NTRSPC CRV BELW C2 SEGMENT; COMMENT: C-spine ACDF CARPAL TUNNEL RELEASE Left PROCEDURE: SD NEUROPLASTY &/TRANSPOS MEDIAN NRV CARPAL TUNNE Medical History Medical History Date Comments Endometrial cancer (CMS/HCC) DX: Endometrial cancer (HCC) Carpal tunnel syndrome DX:Carpal tunnel syndrome Esophageal reflux DX:Esophageal reflux History of renal cell cancer DX: History of renal cell cancer Heartburn DX:Heartburn Burping DX:Burping Epigastric discomfort DX:Epigast anette discomfort Anxiety state DX:Anxiety state Depressive disorder DX:Depressiv e disorder Essential hypertension DX:Essent ial hypertension Nausea DX:Nausea Other chest pain DX:Other chest pain Atypical chest pain DX:Atypical chest pain Social History Tobacco Use Types Packs/Day Years Used Date Smoking Tobacco: Never Smokeless Tobacco: Never Alcohol Use Standard Drinks/Week Comments Not Currently 0 (1 standard drink = 0.6 oz pur e alcohol) Comments Unknown Sex and Gender Information Value Date Recorded Sex Assigned at Not on file Legal Sex Female 3:59 PM EST Gender Identity Not on file Sexual Orientation Not on file Obstetrics History Last Filed Vital Signs Vital Sign Reading Time Taken Comments Blood Pressure 108/62 07/02/2024 11:29 AM EDT Pulse 68 07/02/2024 11:29 AM EDT Temperature - - Respiratory Rate - - Oxygen Saturation - - Inhaled Oxygen Concentration - - Weight 73.5 kg (161 lb 15.9 oz) 07/29/2024 8:07 AM EDT Height 157.5 cm (5' 2 ) 07/29/2024 8:07 AM EDT Body Mass Index 29.63 07/29/2024 8:07 AM EDT Plan of Treatment Upcoming Encounters Date Type Department Care Team (Late st Contact Info) Description 12/31/2024 11:15 AM EDT Office Visit Adult Medicine [address] [phone] Jcarlos Yip MD [address] [place] [address] [phone] Health Maintenance Due Date Last Done Comments RSV Immunization Patients 60+ Years Old (1 - 1-dose 75+ series) 2022 Colorectal Cancer Screening: Stool Based Tests (FOBT/FIT) 09/07/2022 Depression Screening 09/07/2022 Falls Risk Assessment 09/07/2022 Hepatitis C Screening 09/07/2022 Medicare Annual Wellness Visit 09/07/2022 Social Influencers of Health Screening 09/07/2022 COVID-19 Vaccine ( season) 2024 02/11/2022, 07/11/2021, 12/27/2020, Additional history exists Hypertension/CHF/CAD Annual BMP Blood Test 10/19/2025 10/19/2024, 06/02/2024 Cholesterol Screening (Lipid Panel) 11/10/2028 11/10/2023 DTaP,Tdap,and Td Vaccines (3 - Td or Tdap) 02/24/2029 02/24/2019, 02/25/2012 Osteoporosis Screening (Bone Density Screening) 01/02/2033 01/02/2023 Pneumococcal Vaccine: 50+ Years Completed 07/03/2022, 01/31/2019, 02/01/2012 Zoster Vaccines Completed 09/02/2023, 07/01/2023 Influenza Vaccine Completed 06/28/2024, , 06/06/2022, Additional history exists HIB Vaccines Aged Out No longer eligi ble based on patient's age to complete this topic HPV Vaccines Aged Out No longer eligi ble based on patient's age to complete this topic Hepatitis A Vaccines Aged Out No long er eligible based on patient's age to complete this topic Hepatitis B Vaccines Aged Out No long er eligible based on patient's age to complete this topic IPV Vaccines Aged Out No longer eligi ble based on patient's age to complete this topic MMR Vaccines Aged Out No longer eligi ble based on patient's age to complete this topic Meningococcal ACWY Vaccine Aged Out N o longer eligible based on patient's age to complete this topic RSV Immunization Patients Under 20 months Aged Out No longer eligible based on patient's age to complete this topic Varicella Vaccines Aged Out No longer eligible based on patient's age to complete this topic Procedures Procedure Name Priority Date/Time Associated Diagnosis Comments HM ANNUAL BMP BLOOD TEST Routine 06/02/2024 LIPID PANEL Routine 11/10/2023 DXA BONE DENSITY STUDY 1+ SITS AXIAL SKEL Routine 01/02/2023 11:05 AM EDT Encounter for screening for osteoporosis from Last 3 Months or Most Recently Relevant to Health Maintenance Results * Annual BMP Blood Test (06/02/2024) [facility]ologist [facility] Annual BMP Blood Test abstracted Historical Provider HEALTH MAINTENANCE Final Result * (ABNORMAL) Lipid panel (11/10/2023) [facility] LDL/HDL Ratio 3 0 - 4 Triglycerides 97 0 - 150 mg/dL Cholesterol 219(A) 0 - 200 mg/dL HDL 65 >=40 mg/dL LDL Cholesterol 135(A) 0 - 100 mg/dL Blood Venous blood specimen / Unknown Historical Provider LAB BLOOD ORDERABLES Kami l Result * DXA BONE DENSITY STUDY 1+ SITS AXIAL SKEL (01/02/2023 11:05 AM EDT) Anatomical Region Laterality Modality Bone Densitometr y 07/03/2022 8:44 AM EDT Narrative 01/02/2023 2:39 PM EDT BONE DENSITY (DEXA) ? Lumbar Spine T-score is -3.2. ?? (SD relative to 20-29 y/o adult) Z-score is -0.8. ??(SD relative to age matched peers) This is considered osteoporosis by WHO criteria. Left Hip T-score is -1.9. Z-score is -0.1. This is considered osteopenia by WHO criteria. Lateral view of the spine demonstrates moderate compression of the T12 vertebral body. IMPRESSION: This patient is considered to have osteoporosis by WHO criteria. The [facility] Department of Internal Medicine recommends using National Osteoporosis Foundation (NOF) guidelines in treatment decisions related to osteoporosis. NOF guidelines suggest considering treatment for postmenopausal women and men aged 50 or older presenting with the following: History of hip or vertebral fracture. T-score = -2.5 (DXA) at the femoral neck, total hip, or spine, after appropriate evaluation to exclude secondary causes. Low bone mass (T-score between -1.0 and -2.5 at the femoral neck or spine) AND a 10-year probability of a hip fracture = 3% OR a 10-year probability of a major osteoporosis-related fracture = 20% based on the [place]-adapted WHO algorithm Please note that all treatment decisions require clinical judgment and consideration of individual patient factors, including patient preferences, co-morbidities, previous drug use, risk factors not captured in the FRAX model (e.g., frailty, falls, vitamin D deficiency, increased bone turnover, interval significant decline in bone density) and possible under- or over-estimation of fracture risk by FRAX. Optional alternative screening schedule based on markell Wren., [facility] October 17, 2011 for patients with osteopenia (based on hip BMD T-score) is as follows: * ??advanced osteopenia (T scores -2.00 to -2.49), BMD testing every year * ??moderate osteopenia (T scores -1.50 to -1.99), BMD testing every 5 years mild osteopenia or normal BMD (T scores -1.50 and higher), BMD testing every 15 years Procedure Note Giovanna Lara MD - 11/04/2023 BONE DENSITY (DEXA) Lumbar Spine T-score is -3.2. (SD relative to 20-29 y/o adult) Z-score is -0.8. (SD relative to age matched peers) This is considered osteoporosis by WHO criteria. Left Hip T-score is -1.9. Z-score is -0.1. This is considered osteopenia by WHO criteria. Lateral view of the spine demonstrates moderate compression of the H70rgyivenwh body. IMPRESSION: This patient is considered to have osteoporosis by WHO criteria. The [facility] Department of Internal Medicine recommendsusing National Osteoporosis Foundation (NOF) guidelines in treatment decisions related toosteoporosis. NOF guidelines suggest considering treatment for postmenopausal women and menaged 50 or older presenting with the following: History of hip or vertebral fracture. T-score = -2.5 (DXA) at the femoral neck, total hip, or spine, afterappropriate evaluation to exclude secondary causes. Low bone mass (T-score between -1.0 and -2.5 at the femoral neck or spine)AND a 10-year probability of a hip fracture = 3% OR a 10-year probability of a majorosteoporosis-related fracture = 20% based on the [place]-adapted WHO algorithm Please note that all treatment decisions require clinical judgment andconsideration of individual patient factors, including patient preferences, co- morbidities,previous drug use, risk factors not captured in the FRAX model (e.g., frailty, falls, vitaminD deficiency, increased bone turnover, interval significant decline in bone density) andpossible under- or over-estimation of fracture risk by FRAX. Optional alternative screening schedule based on markell Wren., NEJMJanuary 2011 for patients with osteopenia (based on hip BMD T-score) is as follows: * advanced osteopenia (T scores -2.00 to -2.49), BMD testing every year * moderate osteopenia (T scores -1.50 to -1.99), BMD testing every 5years mild osteopenia or normal BMD (T scores -1.50 and higher), BMD testingevery 15 years Jcarlos Yip MD IM DXA PROCEDURES Final Re sult from Last 3 Months or Most Recently Relevant to Health Maintenance Insurance [employer] MEDICARE Advance Directives Documents on File Type Date Recorded Patient Foundation Coordinator Expl anation Health Care Decision (hx) 02/09/2022 AD KUMAR DIRECTIVE Health Care Decision (hx) 02/09/2022 AD KUMAR DIRECTIVE Health Care Decision (hx) 02/09/2022 AD KUMAR DIRECTIVE Health Care Decision (hx) 02/09/2022 AD KUMAR DIRECTIVE Health Care Decision (hx) 02/09/2022 AD KUMAR DIRECTIVE Health Care Decision (hx) 02/09/2022 AD KUMAR DIRECTIVE Health Care Decision (hx) 02/09/2022 AD KUMAR DIRECTIVE Care Teams Fish Stringer Assembler Relationship Specialty Start Date End Date Jcarlos Yip MD [address] [place] [address] PCP - General Internal Medicine 02/14/22
--- OUTSIDE RECORDS SUMMARY | 2024-11-11 08:05 | XMS_ITS | Encounter Summary ---
Author Organization [facility] Address [address] [phone] Phone Care Team Providers Care Funeral Service Licensee Name Role Phone Jcarlos Yip MD Primary Care Provider [phone] Encounter Details Date Type Department Care Team ([facility] Contact Info) Description 10/26/2024 Office Communication [facility] [address] [phone] Edith Mccallum [address] [phone] Social History Tobacco Use Types Packs/Day Years Used Date Smoking Tobacco: Never Smokeless Tobacco: Never Alcohol Use Standard Drinks/Week Comments No 0 (1 standard drink = 0.6 oz pur e alcohol) Comments Unknown Sex and Gender Information Value Date Recorded Sex Assigned at Not on file Legal Sex Female 4:50 PM EST Gender Identity Not on file Sexual Orientation Not on file documented as of this encounter Plan of Treatment Upcoming Encounters Date Type Department Care Team (Late Contact Info) Description 02/01/2025 10:30 AM EDT Office Visit [facility] [address] [phone] Melani Arceo ARNP [address] [phone] documented as of this encounter Visit Diagnoses Not on filedocumented in this encounter Care Teams Funeral Service Licensee Relationship Specialty Start Date End Date Jcarlos Yip MD [address] [place] [phone] PCP - [facility] 07/31/22 documented as of this encounter
--- OUTSIDE RECORDS SUMMARY | 2024-11-11 08:05 | XMS_ITS | Clinical Summary ---
Author Organization [facility] Facility Address [address] [address] Care Team Providers Care Sheet Metal Work Furnace Installer Name Role Phone Jcarlos Yip MD Primary Care Provider [phone] Allergies Active Allergy Reactions Criticality Noted Date Comments Amlodipine Other (see comments) 09/23/2018 Aspirin 07/31/2022 Azithromycin Other (see comments) 11/27/2020 Codeine Other (see comments) 11/27/2020 Lisinopril Other (see comments) 11/27/2020 Oxycodone-Acetaminophen Other (see comments) Medications nitroglycerin (NITROSTAT) 0.4 MG SL tablet as needed Active OMEPRAZOLE PO Take 0.4 mg by mouth daily Active famotidine (PEPCID) 20 MG tablet Take 20 mg by mouth 2 Active atorvastatin (LIPITOR) 20 MG tablet Take 20 mg by mouth 1 (one) time each day Active aspirin (ST PERRY) 81 MG EC tablet Take 81 mg by mouth 1 (one) time each day Active carvedilol (COREG) 25 MG tablet Take 25 mg by mouth in the morning and 25 mg in the evening. Take with meals. Active cyanocobalamin (VITAMIN B-12) 100 MCG tablet Take 50 mcg by mouth 1 (one) time each day Active potassium chloride 10 MEQ CR tablet Take 10 mEq by mouth 3 (three) times a week Do not crush, chew, or split. Active cloNIDine (CATAPRES) 0.1 MG tablet Take 1 tablet (0.1 mg total) by mouth 1 (one) time each day 30 tablet 11 4 Active spironolactone (Aldactone) 25 MG tabletIndicatio ns:Benign essential hypertension,Ch ronic kidney disease, stage 2 (mild) Take 1 tablet (25 mg total) by mouth in the morning and 1 tablet (25 mg total) in the evening. 60 tablet 11 5 10/20/19 26 Active spironolactone (Aldactone) 25 MG tabletIndicatio ns:Benign essential hypertension,Ch ronic kidney disease, stage 2 (mild) Take 1 tablet (25 mg total) by mouth in the morning and 1 tablet (25 mg total) in the evening. 60 tablet 11 5 10/18/19 25 Discontinu ed(Reorder (does not appear on AVS)) Active Problems Problem Noted Date Diagnosed Date Chronic kidney disease, stage 2 (mild) 4 Hypertensive disorder 07/31/2022 Renal stone 07/31/2022 Benign essential hypertension 11/27/2020 Encounters Date Type Department Care Team Description 10/26/2024 Office Communication [facility] [address] [phone] Edith Mccallum 10/19/2024 Orders Only [facility] [address] [phone] Melani Arceo ARNP 10/18/2024 Refill [facility] [address] [phone] Jannet Ambrose MA Benign essential hypertension; Chronic kidney disease, stage 2 (mild) 10/05/2024 Office Communication [facility] [address] [phone] Tracey Ruffin 10/05/2024 Refill [facility] [address] [phone] Malena Camacho MA 08/13/2024 Refill [facility] [address] [phone] Jannet Ambrose MA Benign essential hypertension; Chronic kidney disease, stage 2 (mild) from Last 3 Months Immunizations Name Administration Dates Next Due Pfizer SARS-COV-2 12/27/2020,12/06/2020 Pneumococcal Polysaccharide 01/31/2019, 2 Tdap 02/24/2019,02/25/2012 Family History Medical History Relation Comments Hypertension Child daughter & son Cancer Father Relation Status Comments Child Father Unknown Mother Unknown Social History Tobacco Use Types Packs/Day Years Used Date Smoking Tobacco: Never Smokeless Tobacco: Never Alcohol Use Standard Drinks/Week Comments No 0 (1 standard drink = 0.6 oz pur e alcohol) Comments Unknown Sex and Gender Information Value Date Recorded Sex Assigned at Not on file Legal Sex Female 4:50 PM EST Gender Identity Not on file Sexual Orientation Not on file Last Filed Vital Signs Vital Sign Reading Time Taken Comments Blood Pressure 120/80 08/04/2024 12:09 PM EST Pulse 74 08/04/2024 11:41 AM EST Temperature - - Respiratory Rate - - Oxygen Saturation 99% 07/30/2023 10:17 AM EDT Inhaled Oxygen Concentration - - Weight 74.8 kg (165 lb) 08/04/2024 11:41 AM EST Height 162.6 cm (5' 4 ) 07/30/2023 10:17 AM EDT Body Mass Index 28.32 07/30/2023 10:17 AM EDT Plan of Treatment Upcoming Encounters Date Type Department Care Team (Late st Contact Info) Description 02/01/2025 10:30 AM EDT Office Visit [facility] [address] [phone] Melani Arceo ARNP [address] [phone] Health Maintenance Due Date Last Done Comments Pneumococcal Vaccine: 65+ Years Completed 07/03/2022, 01/31/2019, 02/01/2012 Influenza Vaccine Completed 06/28/2024, , 06/06/2022, Additional history exists Hepatitis B Vaccine Aged Out No longe r eligible based on patient's age to complete this topic Procedures Procedure Name Priority Date/Time Associated Diagnosis Comments SPECIMEN STATUS REPORT Routine 10/19/2024 2:23 PM EST BASIC METABOLIC PANEL Routine 10/19/2024 2:23 PM EST from Last 3 Months Results * SPECIMEN STATUS REPORT (10/19/2024 2:23 PM EST) Specimen Status Comment [facility] [place] Comment: Alexis Abbrev BMP8 Default Ambcolleen Abbrev BMP8 Default A hand-written panel/profile was received from your office. In accordance with the [employer] Ambiguous Test Code Policy dated March 2003, we have completed your order by using the closest currently or formerly recognized AMA panel. ??We have assigned Basic Metabolic Panel (8), Test Code #940845 to this request. If this is not the testing you wished to receive on this specimen, please contact the [employer] Client Inquiry/Technical Services Department to clarify the test order. ??We appreciate your business. 10/19/2024 2:23 PM EST 10/19/2024 Melani Arceo [facility] LAB BLOOD ORDERABLES Final Result [facility] [place] [address] [place] [address] * (ABNORMAL) Basic Metabolic Panel (10/19/2024 2:23 PM EST) Glucose 87 70 - 99 mg/dL [facility] [place] BUN 25 8 - 27 mg/dL [facility] [place] Creatinine 1.08(H) 0.57 - 1.00 mg/dL [facility] [place] eGFR CKD-EPI CR 2020 53(L) >59 mL/min/1.7 3 [facility] [place] BUN/Creatinine Ratio 23 12 - 28 [facility] [place] Sodium 138 134 - 144 mmol/L [facility] [place] Potassium 4.4 3.5 - 5.2 mmol/L [facility] [place] Chloride 102 96 - 106 mmol/L [facility] [place] Bicarbonate (CO2) 23 20 - 29 mmol/L [facility] [place] Calcium 9.9 8.7 - 10.3 mg/dL [facility] [place] 10/19/2024 2:23 PM EST 10/19/2024 Melani Adis OR[facility] LAB BLOOD ORDERABLES Final Result [facility] [place] [address] [place] [address] from Last 3 Months Insurance MEDICARE MEDICARE Care Teams Sheet Metal Work Furnace Installer Relationship Specialty Start Date End Date Jcarlos Yip MD [address] [place] [phone] PCP - [facility] 07/31/22
--- OUTSIDE RECORDS SUMMARY | 2024-11-11 08:05 | XMS_ITS | Encounter Summary ---
Author Organization [facility] Address [address] [phone] Phone Care Team Providers Care Professor Of Pathology Name Role Phone Jcarlos Yip MD Primary Care Provider [phone] Encounter Details Date Type Department Care Team (Late Contact Info) Description 10/19/2024 Orders Only [facility] [address] [phone] Melani Arceo ARNP [address] [phone] Social History Tobacco Use Types [...] Office Visit [facility] [address] [phone] Melani Arceo ARNP [address] [phone] documented as of this encounter Procedures Procedure Name Priority Date/Time Associated Diagnosis Comments SPECIMEN STATUS REPORT Routine 10/19/2024 2:23 PM EST BASIC METABOLIC PANEL Routine 10/19/2024 2:23 PM EST documented in this encounter Results * SPECIMEN STATUS REPORT (10/19/2024 2:23 PM EST) Specimen Status Comment [facility] Comment: Alexis Abbreludwig BMP8 Default Alexis Abbrev BMP8 Default A hand-written panel/profile was received from your office. In accordance with the [employer] Ambiguous Test Code Policy dated March 2003, we have completed your order by using the closest currently or formerly recognized AMA panel. ??We have assigned Basic Metabolic Panel (8), Test Code #[id number] to this request. If this is not the testing you wished to receive on this specimen, please contact the [employer] Client Inquiry/Technical Services Department to clarify the test order. ??We appreciate your business. 10/19/2024 2:23 PM EST 10/19/2024 Melani Arceo [facility] LAB BLOOD ORDERABLES Final Result [facility] [address] [place] [address] * (ABNORMAL) Basic Metabolic Panel (10/19/2024 2:23 PM EST) Glucose 87 70 - 99 mg/dL [facility] BUN 25 8 - 27 mg/dL [facility] Creatinine 1.08(H) 0.57 - 1.00 mg/dL [facility] eGFR CKD-EPI CR 2020 53(L) >59 mL/min/1.7 3 [facility] BUN/Creatinine Ratio 23 12 - 28 [facility] Sodium 138 134 - 144 mmol/L [facility] Potassium 4.4 3.5 - 5.2 mmol/L [facility] Chloride 102 96 - 106 mmol/L [facility] Bicarbonate (CO2) 23 20 - 29 mmol/L [facility] Calcium 9.9 8.7 - 10.3 mg/dL [facility] 10/19/2024 2:23 PM EST 10/19/2024 us Melani ORTIZ LAB BLOOD ORDERABLES Final Result [facility] [address] [place] [address] documented in this encounter Visit Diagnoses Not on filedocumented in this encounter Care Teams Professor Of Pathology Relationship Specialty Start Date End Date Jcarlos Yip MD [address] [place] [phone] PCP - [facility] 07/31/22 documented as of this encounter
--- OUTSIDE RECORDS SUMMARY | 2024-11-11 08:05 | XMS_ITS | Clinical Summary ---
Author Organization [facility] Address [phone] Formerly [facility] [place] [address] Care Team Providers Care Instrumental Musician Name Role Phone Jcarlos Yip MD Primary Care Provider Allergies Active Allergy Reactions Criticality Noted Date Comments Oxycodone-Acetaminophen 06/02/2024 Medications Medication Sig Dispensed Refills Start Date End Date Status rifAXIMin (XIFAXAN) 550 mg TabIndications:sto mach infection per patient Take 550 mg by mouth 2 (two) times a day. Pt not taking because med cost too much money Indications: stomach infection per patient Active carvedilol (COREG) 12.5 MG tablet Take 25 mg by mouth daily. Active eplerenone (INSPRA) 50 MG tablet Take 50 mg by mouth 2 (two) times a day. Active omeprazole (PRILOSEC) 40 MG capsule Take 40 mg by mouth 2 (two) times a day. Active cloNIDine HCL (KAPVAY ER) 0.1 mg Tb12 Take 0.1 mg by mouth 2 (two) times a day. Active amLODIPine (NORVASC) 5 MG tablet Take 5 mg by mouth daily. Active atorvastatin (LIPITOR) 20 MG tablet Take 20 mg by mouth daily. Active calcium carbonate 500 mg (200 mg elemental) chewable tablet Take 1 tablet by mouth 2 (two) times a day. Active sulfamethoxazole-t rimethoprim (BACTRIM DS) 800-160 mg per tablet Take 1 tablet (160 mg of trimethoprim total) by mouth 2 (two) times a day. 10 tablet 06/02/2024 Active Social History Tobacco Use Types Packs/Day Years Used Date Smoking Tobacco: Never Assessed Education Answer Date Recorded Are you interested in more education? Not on ross e 01/24/2023 Are you concerned about learning? Not on file 01/24/2023 No 01/24/2023 No 01/24/2023 Digital Access Answer Date Recorded No 02/22/2023 No 02/22/2023 No 02/22/2023 Reliable internet access at home? Not on file 02/22/2023 Device with a working camera? Not on file Intimate Partner Violence Answer Date R ecorded Are you denied basic needs s uch as food, clothing, or medical care? No 06/02/2024 In the past 12 months have y ou been in a relationship with a person who hurts, threatens, or tries to control you? No 06/02/2024 Are you denied basic needs s uch as food, clothing, or medical care? No 06/02/2024 In the past 12 months have y ou been in a relationship with a person who hurts, threatens, or tries to control you? No 06/02/2024 Sex and Gender Information Value Date Recorded Sex Assigned at Female 06/02/2024 5:09 PM EDT Gender Identity Female 06/02/2024 5:09 PM EDT Sexual Orientation Not on file Last Filed Vital Signs Vital Sign Reading Time Taken Comments Blood Pressure 130/88 06/02/2024 11:27 PM EDT Pulse 64 06/02/2024 11:27 PM EDT Temperature 36.8 ??C (98.2 ??F) 06/02/2024 11:27 PM E DT Respiratory Rate 16 06/02/2024 11:27 PM EDT Oxygen Saturation 100% 06/02/2024 11:27 PM EDT Inhaled Oxygen Concentration - - Weight 74.4 kg (164 lb) 06/02/2024 5:08 PM EDT Height 157.5 cm (5' 2 ) 06/02/2024 5:08 PM EDT Body Mass Index 30 06/02/2024 5:08 PM EDT Plan of Treatment Health Maintenance Due Date Last Done Comments LIPID PANEL 1947 DEPRESSION SCREENING 1959 SMOKING Hx and SMOKELESS TOBACCO SCREENING 1960 HEPATITIS B SCREENING 1965 HEPATITIS C SCREENING 1965 ZOSTER VACCINES (1 of 2) 1997 OSTEOPOROSIS SCREENING INITIAL (ONE-TIME) 2012 PNEUMOCOCCAL VACCINES (50+ years) (2 of 2 - PCV) 02/01/2020 01/31/2019, 02/01/2012 RSV VACCINE (1 - 1-dose 75+ series) 2022 INFLUENZA VACCINE (#1) 2024 0, 07/05/2019, 07/03/2018, Additional history exists COVID-19 VACCINE (2 - season) 2024 12/27/2020 POTASSIUM LEVEL 06/02/2025 06/02/2024 Adult Td,Tdap Booster 02/24/2029 02/24/2019, 012 HEPATITIS A VACCINES Aged Out No long er eligible based on patient's age to complete this topic HEPATITIS B VACCINES Aged Out No long er eligible based on patient's age to complete this topic HIB VACCINES Aged Out No longer eligi ble based on patient's age to complete this topic MENINGOCOCCAL VACCINES (ACWY) Aged Out No longer eligible based on patient's age to complete this topic Medical Devices Not on file Procedures Procedure Name Priority Date/Time Associated Diagnosis Comments BASIC METABOLIC PANEL STAT 06/02/2024 5:20 PM EDT from Last 3 Months or Most Recently Relevant to Health Maintenance Results * (ABNORMAL) Basic metabolic panel (06/02/2024 5:20 PM EDT) SODIUM 137 133 - 146 mmol/L [facility] CHLORIDE 101 96 - 108 mmol/L [facility] POTASSIUM 4.8 3.3 - 5.1 mmol/L [facility] CO2 27 21 - 35 mmol/L [facility] BUN 26(H) 6 - 19 mg/dL [facility] CREATININE 1.00 0.5 - 1.5 mg/dL [facility] GLUCOSE 133(H) 70 - 99 mg/dL [facility] CALCIUM 9.6 8.4 - 10.3 mg/dL [facility] EGFR 58(L) >59 mL/min/1.7 3m2 [facility] Comment:Estimated glomerular filtration rate calculated using the CKD-EPI refit equation. ANION GAP 14 10 - 20 mmol/L [facility] Blood 06/02/2024 5:20 PM EDT 06/02/2024 5:23 PM EDT Jose Miguel Prather MD LAB BLOOD ORDERABLES [facility] [address] [place] [address] from Last 3 Months or Most Recently Relevant to Health Maintenance Care Teams Instrumental Musician Relationship Specialty Start Date End Date Jcarlos Yip MD [address] [place] [id number] PCP - General Internal Medicine 06/02/24 Additional Source Comments The information contained in this document represents components of the legal health record. It is not the complete legal health record.[facility]
== END 2024-11-11 08:03 | disposition home or self-care (01) ==
LOC: HO.XRAY 08:02
PROVIDERS: Visit Provider Internal Medicine
DX: K44.9 Diaphragmatic hernia without obstruction or gangrene (principal)
CPT/HCPCS: 74221

== ENCOUNTER → 2024-11-11 08:10 | Outpatient (BNV) | payer MEDICARE, SELFPAY | PROVIDERS: Visit Provider Radiology Diagnostic Radiology | DX: K44.9 Diaphragmatic hernia without obstruction or gangrene (principal); K21.9 Gastro-esophageal reflux disease without esophagitis | CPT/HCPCS: 74221 ==

== ENCOUNTER 2024-12-08 11:32 | Outpatient (AMB) | payer MEDICARE, SELFPAY ==
--- NOTE | 2024-12-08 11:37 | MHC.OFFVIS ---
Vital Signs 12/08/24 11:41 Height 5 ft 2 in Weight 167 lb BMI 30.5 BP 135/80 Blood Pressure Location Lt brachial Position Sitting Pulse 71 Pulse Oximetry (%) 99 Oxygen Delivery Method Room Air Intake Visit Reasons: BA swallow results Intake Note: Patient follow up for BA swallow result. Patient cc: tiredness with dizziness daily, GERD on and off. Denies any other GI issues. Grip Wrapper Required: No Accompanied by: Self / Same As Patient Allergies oxycodone [From Percocet] Allergy (Mild, Verified 12/08/24 11:36) SWELLING,RASH allopurinol Allergy (Unknown, Verified 12/08/24 11:36) unknown amoxicillin Allergy (Unknown, Verified 12/08/24 11:36) unknown azithromycin [From ZITHROMAX] Allergy (Unknown, Verified 12/08/24 11:36) THROAT SWELLING codeine Allergy (Unknown, Verified 12/08/24 11:36) hives labetalol [LABETALOL] Allergy (Unknown, Verified 12/08/24 11:36) RASH lisinopril Allergy (Unknown, Verified 12/08/24 11:36) swelling lumps rash aspirin [Aspirin] Adverse Reaction (Mild, Verified 12/08/24 11:36) GI UPSET, upset stomach ibuprofen [IBUPROFEN] Adverse Reaction (Unknown, Verified 12/08/24 11:36) STOMACH UPSET pantoprazole Adverse Reaction (Unknown, Verified 12/08/24 11:36) diarrhea, abd pain, muscle spasms HPI Comments Details: 78 y.o F who is here for GI issues as below. Reports abd bloating that starts within a few mins of eating. DOesnt matter what she has had for intake. Has not been able to finish her food x 3 months. Has lost a few pounds in the past couple of months. Was seen at [facility] for EGD 02/02/24: Grade B esophagitis. Hiatal hernia. Esophageal biopsies reviewed. Gastric and duodenal biopsies not taken. Assoc with nausea. Sometimes also reports dizziness but is unsure if related to her GI illness. Was given omeprazole 40 BID which she thinks has helped a bit. 08/20/24: Here for follow up. Reports had another ER visit to [facility] last month. Had an episode of pressure and pain in whole face and neck with L arm pain, pt reports no chest pain or shortness of breath. Reports having cardiac work up done in [facility] but no neuro work up. Had high HR and BP as per her report. [facility] records not available. From GI standpoint, reports near complete resolution of abd pain but still has feeling of bloating post prandially. Rifaximin did not help. CT abd/pel reviewed and + hiatal hernia as also noted on EGD in [facility]. Weight curve stable. Also takes calcium and wonders if that is exacerbating abd cramping. Barium swallow 11/11/24: 1. Mild cricopharyngeal achalasia. 2. Granular appearance to the esophageal mucosa suggesting esophagitis. 3. Mild esophageal dysmotility. 4. Small to moderate-sized type I hiatus hernia. Intermittent gastroesophageal reflux to the midesophagus. 5. Normal-appearing stomach, duodenal bulb, and duodenum. 12/08/24: Reviewed barium swallow results with pt. REviewed that expect esophagitis to heal up within 8-10 week so this finding is a bit surprising. She is now taking nexium 20 BID which she feels is helping with pyrosis. Also avoiding trigger foods. Also noting improvement in swallowing with nexium. [facility] Medical History Anxiety, generalized Hypertension, essential Surgical History Hx of colonoscopy History of esophagogastroduodenoscopy (EGD) History of tonsillectomy History of carpal tunnel surgery History of laminectomy H/O total hysterectomy with bilateral salpingo-oophorectomy (BSO) Family History Father Lung cancer Mother No problems noted. Brother No problems noted. Brother No problems noted. Son No problems noted. Son No problems noted. Sister No problems noted. Sister No problems noted. Daughter No problems noted. Daughter No problems noted. Social History Alcohol intake: never Patient Tobacco Use Status: Never used Tobacco Review of Systems Const All systems reviewed & are unremarkable except as noted in HPI and below Physical Exam Vital Signs: Last Vital Signs Pulse 71 12/08/24 11:41 BP 135/80 12/08/24 11:41 Pulse Ox 99 12/08/24 11:41 Oxygen Delivery Method Room Air 12/08/24 11:41 BMI result Body Mass Index 30.5 No apparent distress Nonicteric Abdomen soft, nondistended Alert and oriented x3, normal gait Assessment & Plan Assessment & Plan (1) Hiatal hernia: Code(s): K44.9 - Diaphragmatic hernia without obstruction or gangrene Category: Medical (2) Bloating: Code(s): R14.0 - Abdominal distension (gaseous) Category: Medical (3) Esophagitis: Code(s): K20.90 - Esophagitis, unspecified without bleeding Category: Medical (4) Abdominal pain: Code(s): R10.9 - Unspecified abdominal pain Category: Medical Plan Noted to have persistent esphagitis on barium swallow despite high dose PPI > 3 months. Will eval with EGD. Plan: - EGD to be booked to r/o BE/malignancy - Cont esomeprazole 20 BID till egd - Avoid trigger foods - Avoid laying down within 90 mins of eating food Follow up after egd Coding Level of Care Code Est Pt Level 4 (36863) Diagnoses Hiatal hernia K44.9 Bloating R14.0 Esophagitis K20.90 Abdominal pain R10.9
[2024-12-08 11:41] VITALS: BP 135/80; PULSE 71; O2SAT 99; BMI 30.5
--- OUTSIDE RECORDS SUMMARY | 2024-12-08 13:39 | XMS_ITS | Clinical Summary ---
Author Organization [facility] Facility Address [address] [address] Care Team Providers Care Sintering Plant Supervisor Name Role Phone Jcarlos Yip MD Primary Care Provider [phone] Allergies Active Allergy Reactions Criticality Noted Date Comments Amlodipine Other (see comments) 09/23/2018 Aspirin 07/31/2022 Azithromycin Other (see comments) 11/27/2020 Codeine Other (see comments) 11/27/2020 Lisinopril Other (see comments) 11/27/2020 Oxycodone-Acetaminophen Other (see comments) Medications nitroglycerin (NITROSTAT) 0.4 MG SL tablet as needed Active OMEPRAZOLE PO Take 0.4 mg by mouth daily Active famotidine (PEPCID) 20 MG tablet Take 20 mg by mouth 07/03/2022 Active atorvastatin (LIPITOR) 20 MG tablet Take [...] (one) time each day 30 tablet 11 04/26/2024 Active spironolactone (Aldactone) 25 MG tabletIndicatio ns:Benign essential hypertension,Ch ronic kidney disease, stage 2 (mild) Take 1 tablet (25 mg total) by mouth in the morning and 1 tablet (25 mg total) in the evening. 60 tablet 11 10/20/2024 6 Active Active Problems Problem Noted Date Diagnosed Date Chronic kidney disease, stage 2 (mild) 4 Hypertensive disorder 07/31/2022 Renal stone 07/31/2022 Benign essential hypertension 11/27/2020 Encounters Date Type Department Care Team Description 10/26/2024 Office Communication [facility] [address] [phone] Edith Mccallum 10/19/2024 Orders Only [facility] [address] [phone] Melani Arceo ARNP 10/18/2024 Refill [facility] [address] [phone] Jannet Ambrose MA Benign essential hypertension; Chronic kidney disease, stage 2 (mild) 10/05/2024 Office Communication [facility] [address] [phone] Tracey Ruffin 10/05/2024 Refill [facility] [address] [phone] Malena Camacho MA from Last 3 Months Immunizations Name Administration [...] Office Visit [facility] [address] [phone] Melani Arceo ARNP [address] [phone] Health Maintenance Due Date Last Done Comments [...] (10/19/2024 2:23 PM EST) Specimen Status Comment [facility] chang Lang Comment: Alexis Liriano BMP8 Default Ambcolleen Mejiareludwig BMP8 Default A hand-written panel/profile was received from your office. In accordance with the [facility] Ambiguous Test Code Policy dated March 2003, we have completed your order by using the closest currently or formerly recognized AMA panel. ??We have assigned Basic Metabolic Panel (8), Test Code #901030 to this request. If this is not the testing you wished to receive on this specimen, please contact the [facility] Client Inquiry/Technical Services Department to clarify the test order. ??We appreciate your business. 10/19/2024 2:23 PM EST 10/19/2024 Melani [facility] LAB BLOOD ORDERABLES Final Result [facility] [address] [place] [address] * (ABNORMAL) Basic Metabolic Panel (10/19/2024 2:23 PM EST) Glucose 87 70 - 99 mg/dL [facility] BUN 25 8 - 27 mg/dL [facility] Creatinine 1.08(H) 0.57 - 1.00 mg/dL [facility] eGFR CKD-EPI CR 2020 53(L) >59 mL/min/1.7 3 [facility] BUN/Creatinine Ratio 23 12 - 28 [facility] Sodium 138 134 - 144 mmol/L [facility] Potassium 4.4 3.5 - 5.2 mmol/L [facility] Chloride 102 96 - 106 mmol/L [facility] Bicarbonate (CO2) 23 20 - 29 mmol/L [facility] Calcium 9.9 8.7 - 10.3 mg/dL [facility] 10/19/2024 2:23 PM EST 10/19/2024 [facility] LAB BLOOD ORDERABLES Final Result [facility] [address] [place] [address] from Last 3 Months Insurance MEDICARE Member Subscriber Plan / Payer (Ef fective 2022-Present) Name:Angle Wiseman Relation to Subscriber:Self Name:Angle Wiseman Payer ID:[id number] (NAIC) Type:Not on file Address: [place] [phone] MEDICARE Care Teams Sintering Plant Supervisor Relationship Specialty Start Date End Date Jcarlos Yip MD [address] [place] [id number] PCP - [facility] 07/31/22
--- OUTSIDE RECORDS SUMMARY | 2024-12-08 13:39 | XMS_ITS | Clinical Summary ---
Author Organization [facility] Address [address] [place] [phone] Phone Care Team Providers Care Parts Order And Stock Clerk Name Role Phone Jcarlos Yip MD Primary Care Provider [phone] Allergies Active Allergy Reactions Criticality Noted Date [...] 6mo and older 07/12/2020,07/05/2019,07/03/2018,06/20,06/14/2016,06/22/2015 Influenza, Unspecified 06/04/2023,06/06/2022 [employer] SARS-CoV-2 COVID-19, mRNA, LNP-S, preservative free 02/11/2022,07/11/2021 Pneumococcal conjugate 13 va lent (Prevnar 13, PCV13) 2mo and older 07/03/2022 Pneumococcal polysaccharide 23 valent (Pneumovax 23) 2yo and older 01/31/2019,02/01/2012 Tdap Tetanus diptheria acell ular pertussis (Boostrix; Adacel) 7yo and older 02/24/2019,02/25/2012 Zoster recombinant (Shingrix ) 19yo and older 09/02/2023,07/01/2023 Surgical History Surgery Date Site/Laterality Comments OTHER SURGICAL HISTORY 2017 Left PROCEDURE: DE NEPHROLITHOTOMY SECONDARY SURG OPERJ CALCULUS OTHER SURGICAL HISTORY N/A PROCEDURE: DE TOT ABD HYST W/PARAORTIC & PELVIC LYMPH NODE MANDI OTHER SURGICAL HISTORY PROCEDURE: DE ARTHRD PST/PSTLAT TQ 1NTRSPC CRV BELW C2 SEGMENT; COMMENT: C-spine ACDF CARPAL TUNNEL RELEASE Left PROCEDURE: DE NEUROPLASTY &/TRANSPOS MEDIAN NRV CARPAL TUNNE Medical [...] 11:15 AM EDT Office Visit Adult Medicine [address] [phone] Jcarlos Yip MD [address] [place] [address] [phone] Health Maintenance Due Date Last Done Comments [...] patient's age to complete this topic Meningococcal B Vacine Aged Out No lo nger eligible based on patient's age to complete this topic RSV Immunization Patients Under 20 months Aged Out No longer eligible based on patient's age to complete this topic Varicella Vaccines Aged Out No longer eligible based on patient's age to complete this topic Procedures Procedure Name Priority Date/Time Associated Diagnosis Comments ANNUAL BMP BLOOD TEST Routine 06/02/2024 LIPID PANEL Routine 11/10/2023 DXA BONE DENSITY STUDY 1+ SITS AXIAL SKEL Routine 01/02/2023 11:05 AM EDT Encounter for screening for osteoporosis from Last 3 Months or Most Recently Relevant to Health Maintenance Results * Annual BMP Blood Test (06/02/2024) Pathologist [facility] Annual BMP Blood Test abstracted Historical Provider HEALTH MAINTENANCE Final Result * (ABNORMAL) Lipid panel (11/10/2023) [facility] LDL/HDL Ratio 3 0 - 4 Triglycerides [...] to have osteoporosis by WHO criteria. [facility] Department of Internal Medicine recommends using National [...] alternative screening schedule based on markell Wren., [facility] October 17, 2011 for patients with [...] the spine demonstrates moderate compression of the [id number] body. IMPRESSION: This patient is considered to have osteoporosis by WHO criteria. [facility] Department of Internal Medicine recommendsusing National Osteoporosis [...] alternative screening schedule based on markell Wren., [facility] for patients with osteopenia (based on [...] Documents on File Type Date Recorded Patient Supervisor Display Fabrication Expl anation Health Care Decision (hx) 02/09/2022 AD KUMAR DIRECTIVE Health Care Decision (hx) 02/09/2022 AD KUMAR DIRECTIVE Health Care Decision (hx) 02/09/2022 AD KUMAR DIRECTIVE Health Care Decision (hx) 02/09/2022 AD KUMAR DIRECTIVE Health Care Decision (hx) 02/09/2022 AD KUMAR DIRECTIVE Health Care Decision (hx) 02/09/2022 AD KUMAR DIRECTIVE Health Care Decision (hx) 02/09/2022 AD KUMAR DIRECTIVE Care Teams Parts Order And Stock Clerk Relationship Specialty Start Date End Date Jcarlos Yip MD [address] [place] [address] PCP - General Internal Medicine 02/14/22
--- OUTSIDE RECORDS SUMMARY | 2024-12-08 13:40 | XMS_ITS | Clinical Summary ---
Author Organization [facility] Address [address] [place] [phone] Phone Care Team Providers Care Depalletizer Operator Name Role Phone Jcarlos Yip MD Primary [...] Hx and SMOKELESS TOBACCO SCREENING 1960 HEPATITIS C SCREENING 1965 ZOSTER VACCINES (1 [...] EDT) SODIUM 137 133 - 146 mmol/L [facility] CHLORIDE 101 96 - 108 mmol/L [facility] POTASSIUM 4.8 3.3 - 5.1 mmol/L [facility] CO2 27 21 - 35 mmol/L [facility] BUN 26(H) 6 - 19 mg/dL [facility] CREATININE 1.00 0.5 - 1.5 mg/dL [facility] GLUCOSE 133(H) 70 - 99 mg/dL [facility] CALCIUM 9.6 8.4 - 10.3 mg/dL [facility] EGFR 58(L) >59 mL/min/1.7 3m2 [facility] Comment:Estimated glomerular filtration rate calculated using the CKD-EPI refit equation. ANION GAP 14 10 - 20 mmol/L [facility] Blood 06/02/2024 5:20 PM EDT 06/02/2024 5:23 PM EDT Jose Miguel Prather MD LAB BLOOD ORDERABLES [facility] [address] [place] [address] from Last 3 Months or Most Recently Relevant to Health Maintenance Care Teams Depalletizer Operator Relationship Specialty Start Date End Date Jcarlos Yip MD [address] [place] [id number] PCP - General Internal Medicine 06/02/24 Additional Source Comments The information contained in this document represents components of the legal health record. It is not the complete legal health record.[facility]
== END 2024-12-08 12:03 | disposition home or self-care (01) ==
LOC: HO.HGI 11:33
PROVIDERS: PCP Internal Medicine; Visit Provider Internal Medicine
DX: K44.9 Diaphragmatic hernia without obstruction or gangrene (principal); R14.0 Abdominal distension (gaseous); K20.90 Esophagitis, unspecified without bleeding; R10.9 Unspecified abdominal pain
CPT/HCPCS: 99214

== ENCOUNTER → 2024-12-08 11:32 | Outpatient (BNVA) | payer MEDICARE, SELFPAY | PROVIDERS: PCP Internal Medicine; Visit Provider Internal Medicine | DX: K44.9 Diaphragmatic hernia without obstruction or gangrene (principal); K20.90 Esophagitis, unspecified without bleeding; R14.0 Abdominal distension (gaseous); R10.9 Unspecified abdominal pain | CPT/HCPCS: 99212 ==

== ENCOUNTER 2025-05-18 12:24 | Outpatient (AMB) | payer MEDICARE, SELFPAY ==
--- NOTE | 2025-05-18 12:49 | MHC.OFFVIS ---
Intake Visit Reasons: Cognitive issues Allergies oxycodone (From Percocet) Allergy (Mild, Verified 12/08/24 11:36) SWELLING,RASH allopurinol Allergy (Unknown, Verified 12/08/24 11:36) unknown amoxicillin Allergy (Unknown, Verified 12/08/24 11:36) unknown azithromycin (From ZITHROMAX) Allergy (Unknown, Verified 12/08/24 11:36) THROAT SWELLING codeine Allergy (Unknown, Verified 12/08/24 11:36) hives labetalol (LABETALOL) Allergy (Unknown, Verified 12/08/24 11:36) RASH lisinopril Allergy (Unknown, Verified 12/08/24 11:36) swelling lumps rash aspirin (Aspirin) Adverse Reaction (Mild, Verified 12/08/24 11:36) GI UPSET, upset stomach ibuprofen (IBUPROFEN) Adverse Reaction (Unknown, Verified 12/08/24 11:36) STOMACH UPSET pantoprazole Adverse Reaction (Unknown, Verified 12/08/24 11:36) diarrhea, abd pain, muscle spasms HPI Comments Details: The patient is a 79-year-old female presenting with memory concerns and hypertension management. A year ago, she began experiencing short-term memory loss, which coincided with the initiation of cholesterol-lowering medication. While she notices some forgetfulness, it has not reached extreme levels. There are intermittent headaches and issues with sleep; the quality of sleep is described as poor, fluctuating between five to six hours and sometimes not sleeping at all, influenced by stomach upset from prescribed medication. Her medical history includes essential hypertension, which has led to several emergency visits due to significant blood pressure fluctuations. The high blood pressure has previously been associated with small strokes, impacting her cognitive function in terms of memory. Previous scans and x-rays, most recently done in 2016, support her account. Her daily life remains self-sufficient, without signs of depression or anxiety, and she denies alcohol usage. No assistive devices are required. Her orientation in time was confirmed during a mental status check. COUNTS INCLUDE 234 BEDS AT THE [facility] Medical History (Updated 05/18/25 @ 13:26 by Eliazar Barron MD) Cognitive safety issue Anxiety, generalized Hypertension, essential Surgical History Hx of colonoscopy History of esophagogastroduodenoscopy (EGD) History of tonsillectomy History of carpal tunnel surgery History of laminectomy H/O total hysterectomy with bilateral salpingo-oophorectomy (BSO) Family History Father Lung cancer Mother No problems noted. Brother No problems noted. Brother No problems noted. Son No problems noted. Son No problems noted. Sister No problems noted. Sister No problems noted. Daughter No problems noted. Daughter No problems noted. Social History Alcohol intake: never Patient Tobacco Use Status: Never used Tobacco Review of Systems Const Details: - Neurological: Reports memory loss, intermittent headaches; Denies significant forgetfulness. - Psychiatric: Denies depression, anxiety, alcohol use. - Sleep: Reports poor quality sleep, with inconsistent sleep patterns; sometimes uses prescribed sleep medication with side effects. - Cardiovascular: Reports history of hypertension with uncontrolled episodes. Physical Exam Neuro Other: Mental Status: Alert and oriented to person, place, and time. Normal attention. Normal spontaneous speech, fluency, and comprehension. Cranial Nerves: CN II: Visual francisco full to confrontation, visual acuity intact. CN III, IV, : Pupils equal, round, reactive to light and accommodation. Extraocular movements are normal. CN V: Facial sensation is normal. CN VII: Facial movements symmetrical. CN VIII: Hearing intact to bedside conversation is normal. CN IX, X: Palate elevates symmetrically. CN XI: Shoulder shrug and head turn symmetrical. CN XII: Tongue midline without atrophy or fasciculations. Motor: Bulk and tone normal in all extremities. No significant muscle weakness in arms and legs. No drift. Reflexes: Deep tendon reflexes 2+ and symmetric. Plantar response down-going bilaterally. Coordination: [id number]-aq-[id number] and cuki-yh-gryn testing normal. No dysmetria. Gait and Station: No obvious gait abnormality. No ataxia or instability. Extrapyramidal: Full facial expressions and blinking. No rigidity. Movements are appropriate with no tremor or abnormality. Speech: Normal; no dysarthria or tremor. Assessment & Plan Assessment & Plan (1) MCI (mild cognitive impairment): Comment: MRI brain WO at [facility] in Dec 2024: Scattered WM lesions (reported) [place] [facility] [place] Scattered WM lesions (reported) Code(s): G31.84 - Mild cognitive impairment of uncertain or unknown etiology Category: Medical (2) Anxiety, generalized: Code(s): F41.1 - Generalized anxiety disorder Category: Medical (3) Cerebral microvascular disease: Code(s): I67.89 - Other cerebrovascular disease Category: Medical Plan Impression and recommendations: 79 years old woman who probably has 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 She was complaining of mild cognitive difficulties with anxiety. Mainstay of management is blood pressure control and control of other vascular risk factors. Anti-platelet agent such as baby aspirin daily can also help. For anxiety, she was advised to take sertraline 25 mg a day. A might consider additional medicine when I see her next time. Serum B12 and folate levels were requested. Orders: Orders Vitamin B12 and Folate Today G31.84 - Mild cognitive impairment of uncertain or unknown etiology Medications: New sertraline 25 mg PO DAILY 90 tabs 1RF Coding Level of Care Code Tele New Pt Level 4 (80268) Diagnoses MCI (mild cognitive impairment) G31.84 Anxiety, generalized F41.1 Cerebral microvascular disease I67.89
--- OUTSIDE RECORDS SUMMARY | 2025-05-18 13:20 | XMS_ITS | Clinical Summary ---
Author Organization [facility] Address [address] [place] [address] Phone Care Team Providers Care Metal Sheet Roller Operator Name Role Phone Jcarlos Yip MD Primary Care Provider Allergies Active Allergy Reactions Criticality Noted Date Comments Oxycodone-Acetaminophen 06/02/2024 Medications rifAXIMin (XIFAXAN) 550 mg TabIndications: stomach infection per patient Take 550 mg by [...] mouth 2 (two) times a day. Active sulfamethoxazol e-trimethoprim (BACTRIM DS) 800-160 mg per tablet Take 1 tablet (160 mg of trimethoprim total) by mouth 2 (two) times a day. 10 tablet Active Social History Tobacco Use Types Packs/Day Years Used Date Smoking Tobacco: Never Assessed Education Answer Date Recorded Are you interested in more education? Not on ross e 01/24/2023 Are you concerned about learning? Not on file 01/24/2023 No 01/24/2023 No 01/24/2023 Digital Access Answer Date Recorded No 02/22/2023 No 02/22/2023 Reliable internet access [...] or tries to control you? No 06/02/2024 Comments Unknown Sex and Gender Information Value Date Recorded Sex Assigned at Female 06/02/2024 5:09 PM EDT Legal Sex Female 8:32 PM EDT Gender Identity Female 06/02/2024 5:09 PM EDT Sexual Orientation Not on file Last Filed Vital Signs Vital Sign Reading Time Taken Comments Blood Pressure 130/88 06/02/2024 11:27 PM EDT Pulse 64 06/02/2024 11:27 PM EDT Temperature 36.8 C (98.2 F) 06/02/2024 11:27 PM EDT Respiratory Rate 16 06/02/2024 11:27 PM EDT [...] VACCINES (1 of 2) 1997 OSTEOPOROSIS SCREENING INITI AL (ONE-TIME) 2012 PNEUMOCOCCAL VACCINES (50+ years) (2 of 2 - PCV) 02/01/2020 01/31/2019, 02/01/2012 RSV VACCINE (1 - 1-dose 75+ series) 2022 COVID-19 VACCINE (2 - 2023-2 5 season) 2024 12/27/2020 POTASSIUM LEVEL 06/02/2025 06/02/2024 Adult Td,Tdap Booster 02/24/2029 02/24/2019 , 02/25/2012 HEPATITIS A VACCINES Aged Out No long er eligible based on patient's age to complete this topic HIB VACCINES Aged Out No longer eligi ble based on patient's age to complete this topic MENINGOCOCCAL VACCINES (ACWY) Aged Out No longer eligible based on patient's age to complete this topic MENINGOCOCCAL VACCINES (B) Aged Out N o longer eligible based on patient's age to complete this topic Medical Devices Not on file Procedures Procedure Name Priority Date/Time Associated Diagnosis Comments BASIC METABOLIC PANEL STAT 06/02/2024 5:20 PM EDT from Last 3 Months or Most Recently Relevant to Health Maintenance Results * (ABNORMAL) Basic metabolic panel (06/02/2024 5:20 PM EDT) SODIUM 137 133 - 146 mmol/L [facility] CHLORIDE 101 96 - 108 mmol/L [facility] POTASSIUM 4.8 3.3 - 5.1 mmol/L [facility] CO2 27 21 - 35 mmol/L [facility] BUN 26(H) 6 - 19 mg/dL [facility] CREATININE 1.00 0.5 - 1.5 mg/dL [facility] GLUCOSE 133(H) 70 - 99 mg/dL [facility] CALCIUM 9.6 8.4 - 10.3 mg/dL [facility] EGFR 58(L) >59 mL/min/1.7 3m2 [facility] Comment:Estimated glomerular filtration rate calculated using the CKD-EPI refit equation. ANION GAP 14 10 - 20 mmol/L [facility] Blood 06/02/2024 5:20 PM EDT 06/02/2024 5:23 PM EDT us Jose Miguel Prather MD LAB BLOOD ORDERABL ES Final Result [facility] [address] [place] [address] from Last 3 Months or Most Recently Relevant to Health Maintenance Insurance MEDICARE PART A & B [facility] MEDICARE REPLACEMENT MEDICARE PART A & B MEDICARE REPLACEMENT MEDICARE PART A & B MEDICARE PART A & B MEDICARE PART A & B MEDICARE REPLACEMENT MEDICARE PART A & B MEDICARE PART A & B MEDICARE REPLACEMENT MEDICARE PART A & B MEDICARE REPLACEMENT MEDICARE PART A & B [facility] MEDICARE REPLACEMENT Care Teams Metal Sheet Roller Operator Relationship Specialty Start Date End Date Jcarlos Yip MD [address] [place] [address] PCP - General Internal Medicine 06/02/24 Additional Source Comments The information contained in this document represents components of the legal health record. It is not the complete legal health record.[facility]
--- OUTSIDE RECORDS SUMMARY | 2025-05-18 13:20 | XMS_ITS ---
Author Name [facility] Organization Unknown Care Team Organization Name Specialty Phone Email Start Date End Da te [facility] Jcarlos Yip Primary Care 08/06/202204/29
--- OUTSIDE RECORDS SUMMARY | 2025-05-18 13:20 | XMS_ITS | Clinical Summary ---
Author Organization [facility] Address [address] [address] Phone Care Team Providers Care Farm Equipment Assembler Name Role Phone Jcarlos Yip MD Primary Care Provider [phone] Allergies Active Allergy Reactions Criticality Noted Date Comments Amlodipine Other (see comments) 09/23/2018 Aspirin 07/31/2022 Azithromycin Other (see comments) 11/27/2020 Codeine Other (see comments) 11/27/2020 Lisinopril Other (see comments) 11/27/2020 Oxycodone-Acetaminophen Other (see comments) Medications nitroglycerin (NITROSTAT) 0.4 MG SL tablet as needed Active famotidine (PEPCID) 20 MG tablet Take [...] mouth 1 (one) time each day Active cloNIDine (CATAPRES) 0.1 MG tablet Take 1 tablet (0.1 mg total) by mouth 1 (one) time each day 30 tablet 11 4 Active eplerenone (Inspra) 50 MG tabletIndications :Chronic kidney disease, stage 2 (mild),Benign essential hypertension Take 1 tablet (50 mg total) by mouth in the morning and 1 tablet (50 mg total) in the evening. 60 tablet 5 5 07/11/20 25 Active Active Problems Problem Noted Date Diagnosed Date Chronic kidney disease, stage 2 (mild) 4 Hypertensive disorder 07/31/2022 Renal stone 07/31/2022 Benign essential hypertension 11/27/2020 Encounters Date Type Department Care Team Description 04/11/2025 Orders Only [facility] [address].. [address] [place] [phone] Margot Hernandez Essential (primary) hypertension (Primary Dx); Chronic kidney disease, not otherwise specified from Last 3 Months Immunizations Immunization Administration Dates Next Due Pfizer SARS-COV-2 12/27/2020,12/06/2020 [...] Sign Reading Time Taken Comments Blood Pressure 140/80 01/12/2025 3:25 PM EDT Pulse 78 01/12/2025 2:48 PM EDT Temperature - - Respiratory Rate - - Oxygen Saturation 99% 07/30/2023 10:17 AM EDT Inhaled Oxygen Concentration - - Weight 75.3 kg (166 lb) 01/12/2025 2:48 PM EDT Height 162.6 cm (5' 4 ) 07/30/2023 10:17 AM EDT Body Mass Index 28.49 07/30/2023 10:17 AM EDT Plan of Treatment Health Maintenance Due Date Last Done Comments Influenza Vaccine (#1) 2025 4, 06/04/2023, 06/06/2022, Additional history exists Pneumococcal Vaccine: 50+ Years Completed 07/03/2022, 01/31/2019, 02/01/2012 Pneumococcal Vaccine: Peds (0 to 5 Years) and At-Risk Patients (6 to 49 Years) Discontinued 07/03/2022, 01/31/2019, 02/01/2012 Hepatitis B Vaccine Aged Out No longe r eligible based on patient's age to complete this topic Insurance Medicare Medicare Care Teams Farm Equipment Assembler Relationship Specialty Start Date End Date Jcarlos Yip MD [address] [place] [id number] [facility] 07/31/22
--- OUTSIDE RECORDS SUMMARY | 2025-05-18 13:20 | XMS_ITS | Clinical Summary ---
Author Organization [address] Address [address] [place] [phone] Phone Care Team Providers Care Customer Contact Sales Associate Name Role Phone Jcarlos Yip MD Primary Care Provider Allergies Active Allergy Reactions Criticality Noted Date Comments Oxycodone Anaphylaxis High 03/13/2021 Medications cloNIDine (CATAPRES) 0.1 mg tablet Take 1 tablet (0.1 mg total) by mouth at bedtime. 04/26/20 24 Active aspirin 81 mg EC tablet Take 1 tablet (81 mg total) by mouth 1 (one) time each day. 01/20/20 24 Active esomeprazole (NexIUM) [address] capsule Take 1 capsule (20 mg total) by mouth 2 (two) times a day. Do not open capsule. Active spironolacton e (ALDACTONE) 25 mg tablet Take 1 tablet (25 mg total) by mouth 2 (two) times a day. 10/20/19 25 2025 Active cholecalcifer ol (VITAMIN D-3) 25 mcg (1,000 unit) tablet Take 1 tablet (1,000 Units total) by mouth 1 (one) time each day. Active calcium carbonate-cho lecalciferol (OYSTER SHELL) 250 mg-3.125 mcg (125 unit) per tablet Take 1 tablet by mouth 1 (one) time each day with breakfast. Active atorvastatin (LIPITOR) 10 mg tablet Take 1 tablet (10 mg total) by mouth at bedtime. Active lotilaner 0.25 % drops Administer into affected eye(s) 2 (two) times a day. Prescribed by Opthalmology Active traZODone (DESYREL) 50 mg tablet Take 0.5-1 tablets (25-50 mg total) by mouth at bedtime as needed for sleep. 30 tablet 1 05/03/20 25 Active carvediloL (COREG) 25 mg tablet TAKE 1 TABLET BY MOUTH TWICE A DAY WITH MEALS 180 tablet 1 05/13/20 25 Active carvediloL (COREG) 25 mg tablet Take 1 tablet (25 mg total) by mouth 2 (two) times a day with meals. 07/02/20 24 2024 Discontinued pyridoxine (B-6) 100 mg tablet Take 1 tablet (100 mg total) by mouth 1 (one) time each day. 2024 Discontinued meclizine (ANTIVERT) 12.5 mg tablet Take 1 tablet (12.5 mg total) by mouth 3 (three) times a day if needed for dizziness. 90 tablet 1 01/01/20 25 2024 Discontinued LORazepam (ATIVAN) 0.5 mg tablet Take 1 tablet (0.5 mg total) by mouth See administration instructions. Take 1 tablet 1 hour before MRI, repeat the dose 30 minutes before MRI as needed 2 tablet 01/18/20 25 2024 Discontinued Active Problems Problem Noted Date Diagnosed Date Burping 09/08/2024 Heartburn 09/08/2024 Gastroesophageal reflux dise ase with esophagitis without hemorrhage 07/02/2024 Bladder wall thickening 01/20/2024 Labile hypertension 01/20/2024 Osteoporosis 01/20/2024 Atrial septal aneurysm 06/09/2023 Anxiety 03/19/2022 Insomnia 03/19/2022 Eczema 10/04/2021 Gastroesophageal reflux disease without esophagi tis 03/30/2021 Hypertension 03/30/2021 Encounters Date Type Department Care Team Description 05/16/2025 Telephone Adult Medicine [address] [phone] Jcarlos Yip MD 05/03/2025 11:30 AM EDT Office Visit Adult Medicine [address] [phone] Jcarlos Yip MD Gastroesophageal reflux disease without esophagitis (Primary Dx); Dysphagia, unspecified type; Snoring; Insomnia, unspecified type 04/21/2025 Telephone Adult Medicine [address] [phone] Jcarlos Yip MD Referral 03/07/2025 Telephone Adult [address] [phone] Jcarlos Yip MD Results from Last 3 Months Immunizations Name Administration Dates Next Due Influenza trivalent, 0.5mL ( Fluad) 65yo and older 06/28/2024,06/08/2021 Influenza trivalent, with pr eservative (Fluzone; Afluria) 6mo and older 07/12/2020,07/05/2019,07/03/2018,06/20,06/14/2016,06/22/2015 Influenza, Unspecified 06/04/2023,06/06/2022 [place] SARS-CoV-2 COVID-19, mRNA, LNP-S, preservative free 02/11/2022,07/11/2021 Pneumococcal conjugate 13 va lent (Prevnar 13, PCV13) 2mo and older 07/03/2022 Pneumococcal polysaccharide 23 valent (Pneumovax 23) 2yo and older 01/31/2019,02/01/2012 Tdap Tetanus diptheria acell ular pertussis (Boostrix; Adacel) 7yo and older 02/24/2019,02/25/2012 Zoster recombinant (Shingrix ) 19yo and older 09/02/2023,07/01/2023 Surgical History Surgery Date Site/Laterality Comments OTHER SURGICAL HISTORY 2018 Left PROCEDURE: NV NEPHROLITHOTOMY SECONDARY SURG OPERJ CALCULUS OTHER SURGICAL HISTORY N/A PROCEDURE: NV TOT ABD HYST W/PARAORTIC & PELVIC LYMPH NODE MANDI OTHER SURGICAL HISTORY PROCEDURE: NV ARTHRD PST/PSTLAT TQ 1NTRSPC CRV BELW C2 SEGMENT; COMMENT: C-spine ACDF CARPAL TUNNEL RELEASE Left PROCEDURE: NV NEUROPLASTY &/TRANSPOS MEDIAN NRV CARPAL TUNNE Medical History Medical History Date Comments Endometrial cancer (CMS/[facility] V24, CMS/HCC V28) DX:Endometrial cancer (HCC) Carpal tunnel syndrome DX:Carpal tunnel [...] Date Smoking Tobacco: Never Smokeless Tobacco: Never Tobacco Cessation:Counseling Given: Not Answered Alcohol Use Standard Drinks/Week Comments Not Currently 0 (1 standard drink = 0.6 oz pur e alcohol) Comments No Sex and Gender Information Value Date Recorded Sex Assigned at Not on file Legal Sex Female 3:59 PM EST Gender Identity Not on file Sexual Orientation Not on file Obstetrics History Last Filed Vital Signs Vital Sign Reading Time Taken Comments Blood Pressure 120/80 05/03/2025 11:33 AM EDT Pulse 52 05/03/2025 11:33 AM EDT Temperature 36.1 C (97 F) 05/03/2025 11:33 AM EDT Respiratory Rate - - Oxygen Saturation 99% 05/03/2025 11:33 AM EDT Inhaled Oxygen Concentration - - Weight 80.3 kg (177 lb) 05/03/2025 11:33 AM EDT Height 157.5 cm (5' 2 ) 05/03/2025 11:33 AM EDT Body Mass Index 32.37 05/03/2025 11:33 AM EDT Plan of Treatment Upcoming Encounters Date Type Department Care Team (Late st Contact Info) Description 06/13/2025 9:30 AM EDT Appointment [facility] Xray [address] [place] [phone] 07/04/2025 11:30 AM EDT Office Visit Adult Medicine [address] [phone] Jcarlos Yip MD [address] [place] [phone] Health Maintenance Due Date Last Done Comments Colorectal Cancer Screening: Stool Based Tests (FOBT/FIT) 09/07/2022 Falls Risk Assessment 09/07/2022 Hepatitis C Screening 09/07/2022 Medicare Annual Wellness Visit 09/07/2022 Social Influencers of Health Screening 09/07/2022 COVID-19 Vaccine ( season) 2024 02/11/2022, 07/11/2021, 12/27/2020, Additional history exists Depression Screening 09/29/2024 Influenza Vaccine (#1) 2025 , 06/04/2023, 06/06/2022, Additional history exists Hypertension/CHF/CAD Annual BMP Blood Test 10/19/2025 10/19/2024, 06/02/2024 DTaP,Tdap,and Td Vaccines (3 - Td or Tdap) 02/24/2029 02/24/2019, 02/25/2012 Cholesterol Screening (Lipid Panel) 01/03/2030 01/03/2025, 11/10/2023 Osteoporosis Screening (Bone Density Screening) 01/02/2033 01/02/2023 Pneumococcal Vaccine: 50+ Years Completed 07/03/2022, 01/31/2019, 02/01/2012 RSV Immunization Adult Patients Completed 07/01/2023 Zoster Vaccines Completed 09/02/2023, 07/01/2023 HIB Vaccines Aged Out No longer eligi [...] age to complete this topic Meningococcal B Vaccine Aged Out No l onger eligible based on patient's age to complete this topic RSV Immunization Patients Under 20 months Aged Out No longer eligible based on patient's age to complete this topic Varicella Vaccines Aged Out No longer eligible based on patient's age to complete this topic Procedures Procedure Name Priority Date/Time Associated Diagnosis Comments ECG 12-LEAD Routine 05/04/2025 1:29 PM EDT XR CHEST 2 VIEWS Routine 05/04/2025 1:27 PM EDT LIPID PANEL WITH REFLEX TO DIRECT LDL Routine 01/03/2025 9:06 AM EDT Mixed hyperlipidemia ANNUAL BMP BLOOD TEST Routine 06/02/2024 DXA BONE DENSITY STUDY 1+ SITS AXIAL SKEL Routine 01/02/2023 11:05 AM EDT Encounter for screening for osteoporosis from Last 3 Months or Most Recently Relevant to Health Maintenance Results * ECG 12 lead (05/04/2025 1:29 PM EDT) us Historical Provider ECG ORDERABLES Final Res ult * XR Chest 2 Views (05/04/2025 1:27 PM EDT) Anatomical Region Laterality Modality Body Radiographic Mery ging us Historical Provider IMG XR PROCEDURES Final R esult * Lipid panel with reflex to direct LDL (01/03/2025 9:06 AM EDT) Cholesterol 179 0 - 200 mg/dL LAB CHEMISTRY METHOD 01/03/2025 1:46 PM EDT [facility] Triglycerides 101 0 - 150 mg/dL LAB CHEMISTRY METHOD 01/03/2025 1:46 PM EDT [facility] HDL 63 >=40 mg/dL LAB CHEMISTRY METHOD 01/03/2025 1:46 PM EDT [facility] LDL Calculated 96 0 - 100 mg/dL LAB CHEMISTRY METHOD 01/03/2025 1:46 PM EDT [facility] VLDL Cholesterol Hesham 20.2 mg/dL LAB CHEMISTRY METHOD 01/03/2025 1:46 PM EDT [facility] Non HDL Chol. (LDL+VLDL) 116 <145 mg/dL LAB CHEMISTRY METHOD 01/03/2025 1:46 PM EDT [facility] Chol/HDL Ratio 2.8 0.0 - 4.4 LAB CHEMISTRY METHOD 01/03/2025 1:46 PM EDT [facility] Blood Venous blood specimen / Unknown Venipuncture / Unknown 01/03/2025 9:06 AM EDT 01/03/2025 9:06 AM EDT Jcarlos Yip MD LAB BLOOD ORDERABLES Final Result [facility] [address] [place] [address], [place] [phone] * Annual BMP Blood Test (06/02/2024) [facility] Annual BMP Blood Test abstracted Historical Provider HEALTH MAINTENANCE Final Result * DXA BONE DENSITY STUDY 1+ SITS AXIAL SKEL (01/02/2023 11:05 AM EDT) Anatomical Region Laterality Modality Bone Densitometr y 07/03/2022 8:44 AM EDT Narrative 01/02/2023 2:39 PM EDT BONE DENSITY (DEXA) Lumbar Spine T-score is [...] to have osteoporosis by WHO criteria. The [facility] Department of Internal Medicine recommends using [...] alternative screening schedule based on markell Wren., [facility] October 17, 2011 for patients [...] the spine demonstrates moderate compression of the [id number] body. IMPRESSION: This patient is considered to have osteoporosis by WHO criteria. The [facility] Department of Internal Medicine recommendsusing National [...] BMD testingevery 15 years Jcarlos Yip MD IMG DXA PROCEDURES Final Re sult from Last 3 Months or Most Recently Relevant to Health Maintenance Insurance [employer] MEDICARE Advance Directives Documents on File Type Date Recorded Patient Rolling Chair Pusher Expl anation Health Care Decision (hx) 02/09/2022 AD KUMAR DIRECTIVE Health Care Decision (hx) 02/09/2022 AD KUMAR DIRECTIVE Health Care Decision (hx) 02/09/2022 AD KUMAR DIRECTIVE Health Care Decision (hx) 02/09/2022 AD KUMAR DIRECTIVE Health Care Decision (hx) 02/09/2022 AD KUMAR DIRECTIVE Health Care Decision (hx) 02/09/2022 AD KUMAR DIRECTIVE Health Care Decision (hx) 02/09/2022 AD KUMAR DIRECTIVE Care Teams Customer Contact Sales Associate Relationship Specialty Start Date End Date Jcarlos Yip MD [address] [place] [address] PCP - General Internal Medicine 02/14/22
== END 2025-05-18 13:02 | disposition home or self-care (01) ==
LOC: HO.HSM 12:25
PROVIDERS: PCP Internal Medicine; Visit Provider Psychiatry & Neurology Neurology
DX: G31.84 Mild cognitive impairment of uncertain or unknown etiology (principal); F41.1 Generalized anxiety disorder; I67.89 Other cerebrovascular disease
CPT/HCPCS: 99204

== ENCOUNTER → 2025-05-18 12:24 | Outpatient (BNVA) | payer MEDICARE, SELFPAY | PROVIDERS: PCP Internal Medicine; Visit Provider Psychiatry & Neurology Neurology | DX: G31.84 Mild cognitive impairment of uncertain or unknown etiology (principal); F41.1 Generalized anxiety disorder; I67.89 Other cerebrovascular disease | CPT/HCPCS: 99202 ==

== ENCOUNTER 2025-07-07 10:45 | Outpatient (AMB) | payer MEDICARE, SELFPAY ==
--- NOTE | 2025-07-07 11:04 | A.OFFVIS_ITS ---
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 Accompanied by: Self / Same As Patient Allergies oxycodone (From Percocet) Allergy (Mild, Verified 07/07/25 11:26) SWELLING,RASH allopurinol Allergy (Unknown, Verified 07/07/25 11:26) unknown amoxicillin Allergy (Unknown, Verified 07/07/25 11:26) unknown azithromycin (From ZITHROMAX) Allergy (Unknown, Verified 07/07/25 11:26) THROAT SWELLING codeine Allergy (Unknown, Verified 07/07/25 11:26) hives labetalol (LABETALOL) Allergy (Unknown, Verified 07/07/25 11:26) RASH lisinopril Allergy (Unknown, Verified 07/07/25 11:26) swelling lumps rash aspirin (Aspirin) Adverse Reaction (Mild, Verified 07/07/25 11:26) GI UPSET, upset stomach ibuprofen (IBUPROFEN) Adverse Reaction (Unknown, Verified 07/07/25 11:) STOMACH UPSET pantoprazole Adverse Reaction (Unknown, Verified 07/07/25 11:) diarrhea, abd pain, muscle spasms Medication List - Last Reconciled 07/07/25 by Anil Levine MD aspirin 81 mg PO DAILY carvedilol 25 mg PO BID cholecalciferol (vitamin D3) (Vitamin D3) 50 mcg PO DAILY clobetasol 0.05% 1 appl topical BID clonidine HCl 0.1 mg PO BID 90 days eplerenone 50 mg PO BID esomeprazole magnesium 20 mg PO BID nitroglycerin 0.4 mg sublingual Q5M PRN pyridoxine (vitamin B6) 10 mg PO DAILY HPI Comments Details: Angle returns for follow-up. She has difficult to control hypertension which is very labile. She has tried various medications including hydralazine, nicardipine, losartan, hydrochlorothiazide but had numerous side effects. With spironolactone, she got very hypotensive/tachycardic. With high blood pressures, she can get symptoms like chest pain and shortness of breath. She has also tried olmesartan but due to low blood pressure, that was also stopped. Current medical regimen includes carvedilol, clonidine, eplerenone. Since last seen, she feels just about the same. No new concerns. [facility] Medical History (Updated 05/18/25 @ 13:26 by Eliazar Barron MD) Cognitive safety issue Anxiety, generalized Hypertension, essential Surgical History Hx of colonoscopy History of esophagogastroduodenoscopy (EGD) History of tonsillectomy History of carpal tunnel surgery History of laminectomy H/O total hysterectomy with bilateral salpingo-oophorectomy (BSO) Family History Father Lung cancer Mother No problems noted. Brother No problems noted. Brother No problems noted. Son No problems noted. Son No problems noted. Sister No problems noted. Sister No problems noted. Daughter No problems noted. Daughter No problems noted. Social History Alcohol intake: never Patient Tobacco Use Status: Never used Tobacco Review of Systems Const Denies daytime sleepiness, Denies difficulty sleeping, Denies snoring, Denies stops breathing during sleep and Denies weakness Card Denies chest pain, Denies rapid heart rate, Denies irregular heart rhythm, Denies claudication, Denies leg edema, Denies lightheadedness, Reports palpitations, Denies dyspnea, Denies dyspnea on exertion, Denies orthopnea, Denies paroxysmal nocturnal dyspnea and Denies slow heart rate Resp Denies cough, Denies dyspnea, Denies dyspnea on exertion and Denies snoring GI Reports no additional complaints, Denies hematochezia, Denies change in stool character and Denies dyspepsia Musc Denies abnormal gait, Denies muscle weakness and Denies numbness Neuro Denies abnormal gait, Denies numbness and Denies weakness Endo Reports palpitations Physical Exam Vital Signs: Last Vital Signs Pulse 60 07/07/25 11:23 BP 136/80 07/07/25 11:23 BMI result Body Mass Index 31.4 Const General: comfortable and no acute distress Orientation/consciousness: patient oriented x3 HEENT Other: Unremarkable Head: Yes normal to inspection Neck Neck: Yes normal visual inspection Chest Chest palpation & inspection: normal inspection of the chest Resp Auscultation: clear to auscultation bilaterally Cardio Palpation: normal PMI Heart sounds: S1 normal heart sound present, S2 normal heart sound present, no gallops, no murmurs and no rubs GI Palpation (GI): Soft to palpation Back/Spine/Pelvis Other: unremarkable Skin General skin exam: no rashes or lesions noted Neuro General: patient oriented x3 Extrem General: Yes normal to inspection Psych Mental Status: mental status grossly normal Office Procedures EKG Details: EKG with underlying sinus rhythm at 60/Min; cannot exclude old lateral infarct but could also be just been normal variant. Normal [place] and corrected QT. Overall, similar to prior EKG. [id number], Complete Assessment & Plan Assessment & Plan (1) Hypertension, essential: Code(s): I10 - Essential (primary) hypertension Category: Medical Plan: Currently, on carvedilol, clonidine, eplerenone. Various other medications have been tried in the past including nicardipine, hydralazine, spironolactone, losartan, olmesartan, hydrochlorothiazide with some issue or the other. Otherwise, last echocardiogram with preserved LVEF. Myocardial perfusion imaging study from 2019 showed normal perfusion. Sleep study was requested in the past but denied by insurance. No new changes made today. (2) Atrial septal aneurysm: Code(s): I25.3 - Aneurysm of heart Category: Medical Plan: Seen in echocardiogram, no clear evidence of PFO by color Doppler. No specific implications. Medications: Changed From nitroglycerin Do not exceed 3 dose 0.4 mg sublingual Q5M 25 tabs 5RF To nitroglycerin Do not exceed 3 dose 0.4 mg sublingual Q5M PRN Coding Level of Care Code Est Pt Level 3 (92483) Diagnoses Hypertension, essential I10 Atrial septal aneurysm I25.3 CPT Codes EKG - CPT: 88287-[id number], Complete ([id number])
[2025-07-07 11:23] VITALS: BP 136/80; PULSE 60; BMI 31.4
== END 2025-07-07 11:45 | disposition home or self-care (01) ==
LOC: HO.HCS 10:46
PROVIDERS: PCP Internal Medicine; Visit Provider Internal Medicine
DX: I10 Essential (primary) hypertension (principal); I25.3 Aneurysm of heart
CPT/HCPCS: 93010; 99213

== ENCOUNTER → 2025-07-07 10:45 | Outpatient (BNVA) | payer MEDICARE, SELFPAY | PROVIDERS: PCP Internal Medicine; Visit Provider Internal Medicine | DX: I10 Essential (primary) hypertension (principal); I25.3 Aneurysm of heart; Z79.82 Long term (current) use of aspirin | CPT/HCPCS: 93005; 99212 ==